=== PATIENT | male | born 1955 | race Caucasian/White ===

== ENCOUNTER 2017-12-16 07:08 | Day surgery (SDC) | payer OTHER ==
[2017-12-12 10:05] LABS: Absolute Lymphocytes (CBC) 2.3 K/uL (0.7-4.9); Absolute Monocytes 1.1 K/uL (0.1-1.3); Basophils % 1.1 % (0-1.3); Eosinophils % 1.2 % (0-4.4); Hematocrit 51.4 % (39.6-49.0); Lymphocytes % 26.3 % (15.3-44.8); MCH 33.1 pg (27.0-35.0); MCV 97.8 fL (80-100); MPV 9.3 fL (7.6-11.3); Monocytes % 12.7 % (3.3-12.3); RBC Red Blood Cell Count 5.26 M/uL (4.33-5.43)
--- NOTE | 2017-12-12 10:19 | RAD REPORT ---
EXAM DESCRIPTION: Silke Molina (2 Views)12/12/2017 9:15 am CLINICAL HISTORY: Hypertension/shortness of breath/preop for heart catheterization COMPARISON: None FINDINGS: The lungs appear clear of acute infiltrate. The heart is mildly enlarged IMPRESSION: No acute abnormalities displayed
[2017-12-12 10:23] LABS: Potassium 4.3 mmol/L (3.5-5.1); Protime INR 1.04
[2017-12-16] MEDS ORDERED: NA CHLORIDE 0.9% 500 ML ONE ×2 (07:46→12:33)
[2017-12-16] MEDS ORDERED: HEPA 1000U/500MLS 1,000 UNIT/500 ML BAG IV ONE (08:28)
[2017-12-16] MEDS ORDERED: LIDOCAINE 1% MPF 2 ML AMPULE ONE (08:28)
[2017-12-16] MEDS ORDERED: LIDOCAINE 1% MPF 5 ML VIAL ONE (11:37)
[2017-12-16] MEDS ORDERED: MIDAZOLAM HCL 2 MG/2 ML INJ ONE (11:54)
[2017-12-16] MEDS ORDERED: NA CHLORIDE 0.9% 50 ML ONE (11:54)
[2017-12-16] MEDS ORDERED: FENTANYL CITR 100 MCG/2 ML ONE (11:54)
[2017-12-16] MEDS ORDERED: ATROPINE SULF 1 MG/10 ML SYR IV ONE (11:54)
[2017-12-16] MEDS ORDERED: ASPIRIN 325 MG TAB ONE (12:41)
[2017-12-16] MEDS ORDERED: CLOPIDOGREL 75 MG TABLET ONE (12:42)
[2017-12-16] MEDS ORDERED: DIAZEPAM 5 MG TABLET PO PRN (15:25)
[2017-12-16] MEDS ORDERED: MORPHINE 4 MG/ML SYR IV PRN (15:25)
[2017-12-16] MEDS: AZELASTINE NASAL SPRAY 30 ML NAS SCH (21:00)
[2017-12-16] MEDS ORDERED: SACUBITRIL/VALSARTAN 24/26 MG TAB PO SCH (21:00)
[2017-12-16] MEDS: ATORVASTATIN 40 MG TAB PO SCH (21:04)
[2017-12-17 05:21] LABS: Absolute Lymphocytes (CBC) 2.5 K/uL (0.7-4.9); Absolute Monocytes 0.9 K/uL (0.1-1.3); Absolute Neutrophil 6.3 K/uL (1.8-8.0); Basophils % 0.9 % (0-1.3); Eosinophils % 1.1 % (0-4.4); Hematocrit 44.4 % (39.6-49.0); Lymphocytes % 25.1 % (15.3-44.8); MCH 32.9 pg (27.0-35.0); MCV 97.1 fL (80-100); MPV 9.2 fL (7.6-11.3); RBC Red Blood Cell Count 4.58 M/uL (4.33-5.43)
[2017-12-17 05:49] LABS: Potassium 4.2 mmol/L (3.5-5.1)
[2017-12-17] MEDS ORDERED: KETOROLAC 30 MG/ML INJ IV ONE (06:24)
[2017-12-17] MEDS ORDERED: NA CHLORIDE 0.9% 250 ML IV ONE (06:24)
[2017-12-17] MEDS: ASPIRIN 81 MG CHEWABLE TABLET PO SCH (08:41)
[2017-12-17] MEDS: SERTRALINE HCL 50 MG TAB PO SCH (08:41)
[2017-12-17] MEDS: FUROSEMIDE 20 MG TABLET PO SCH (08:41)
[2017-12-17] MEDS: CLOPIDOGREL 75 MG TABLET PO SCH (08:41)
[2017-12-17] MEDS: AZELASTINE NASAL SPRAY 30 ML NAS SCH ×2 (09:00→20:07)
--- NOTE | 2017-12-17 09:24 | RAD REPORT ---
EXAM DESCRIPTION: CT - Chest For Pe Angio - 12/17/2017 8:58 am CLINICAL HISTORY: Shortness of breath, recent cardiac catheterization COMPARISON: None. TECHNIQUE: Dynamically enhanced 3 mm thick images of the chest were obtained during administration o f approximately 150mL Isovue 370 IV contrast. Coronal and oblique reconstruction MIP images were gene rated and reviewed. Exam utilizes a protocol to evaluate the pulmonary arterial tree. All CT scans are performed using dose optimization technique as appropriate and may include automated exposure control or mA/KV adjustment according to patient size. FINDINGS: No pulmonary emboli are identified. The aorta as imaged shows no acute or suspicious finding. No pericardial thickening or effusion. No mass or focal infiltrate in the lung parenchyma. Interstitial markings are accentuated by slight m otion degradation. This could potentially mask minimal interstitial edema. Minimal atelectasis in the right posterior gutter. No pleural effusion or pleural thickening. No mediastinal or hilar suspicious masses. No chest wall masses or abnormal axillary lymphadenopathy. IMPRESSION: No pulmonary emboli identified. Motion accentuates the interstitial markings. This could potentially mask a mild interstitial edema o r infiltrate. There is no consolidation, mass or abnormal pleural fluid.
--- NOTE | 2017-12-17 09:36 | EKG ---
Test Date: 2017-12-17 Test Time: 07:35:28 [employer] Clerk: RD MEASUREMENT RESULTS: Intervals: Rate: 76 WA: 148 QRSD: 98 QT: 412 QTc: 463 [place]: P: 7 WA: 148 QRS: -32 T: 15 INTERPRETIVE STATEMENTS: Normal sinus rhythm Left axis deviation Minimal voltage criteria for LVH, may be normal variant Prolonged QT Abnormal ECG Compared to ECG 12/17/2017 06:00:19 T-wave abnormality no longer present Electronically Signed On 12-17-17 09:36:08 CDT by Demetrius Crow
--- NOTE | 2017-12-17 09:38 | EKG ---
Test Date: 2017-12-17 Test Time: 06:00:19 [employer] Operator: RT T MEASUREMENT RESULTS: Intervals: Rate: 79 NM: 150 QRSD: 102 QT: 408 QTc: 467 [place]: P: -9 NM: 150 QRS: -37 T: 16 INTERPRETIVE STATEMENTS: Normal sinus rhythm Left axis deviation Minimal voltage criteria for LVH, may be normal variant Nonspecific T wave abnormality Prolonged QT Abnormal ECG No previous ECG available for comparison Electronically Signed On 12-17-17 09:37:52 CDT by Demetrius Crow
--- NOTE | 2017-12-17 12:19 | PN ---
Subjective: Mr. Thomas is a 62-year-old man. Mr. Thomas had 2 stents put in the coronary arteries yes terday. The diagonal branch of the LAD and the obtuse marginal branch of the circumflex. Both proce dures had excellent angiographic outcome. This morning, he is having chest pain with rather pleuriti c. The dose of ketorolac did not help. EKGs are unchanged. We are going to get a CAT scan, see if there is evidence of any pulmonary embolus, aortic dissection or other causes of possible chest pain. He got a bolus of fluid. His blood pressure is fairly normal. He is clearly not ready for dischar . KT/BRITTANY Voice ID: [id number] Report ID: [id number]
--- NOTE | 2017-12-17 17:49 | OP ---
Surgeon: Jeramy Orosco MD Description Of Procedure: Mr. Thomas was brought into the [facility] as an outpatient. He is 62 years old, has new onset cardiomyopathy and positive Cardiolite. A 6-Lebanese sheath was introduced in the r ight common femoral artery. He was prepped and draped in the routine sterile fashion, given 2 mg of Versed for IV sedation. Six-Lebanese catheters were used to do the diagnostic angiogram. He was found to have an 80% circumflex mid level about 80% proximal diagonal that was a long vessel and large ves jignesh for diagonal. LAD was normal. RCA was normal. Left ventriculogram was done showing ejection fr action of 15% to 20%. I decided to do intervention in the diagonal and circumflex. XB LAD 3.5 was u sed. A [place] wire was used, extra-support exchange with a 2.5 x 12 stent was used to stent the diag onal and then a 2.5 x 16 was used to stent the circumflex both Synergy. There was 0% residual. The patient tolerated the procedure well. There were no complications. Blood Loss: 5 cc. Total Conscious Sedation: 45 minutes. Operators: Jeramy Orosco M.D. and Alissa Zimmerman. The patient received Plavix 600 mg and 325 mg of aspirin and received Angiomax during the procedure. He was stable and I will see him in the office in 2 weeks. He is on Pravachol, Entresto, aspirin an d Plavix. CARRI/ALEXL Voice ID: [id number] Report ID: [id number]
[2017-12-17] MEDS: ATORVASTATIN 40 MG TAB PO SCH (20:07)
[2017-12-18] MEDS: FUROSEMIDE 20 MG TABLET PO SCH (08:20)
[2017-12-18] MEDS: CLOPIDOGREL 75 MG TABLET PO SCH (08:20)
[2017-12-18] MEDS: ASPIRIN 81 MG CHEWABLE TABLET PO SCH (08:20)
[2017-12-18] MEDS: SERTRALINE HCL 50 MG TAB PO SCH (08:20)
[2017-12-18] MEDS: AZELASTINE NASAL SPRAY 30 ML NAS SCH (08:21)
--- NOTE | 2017-12-20 00:29 | PN ---
History: Mr. Thomas basically had come in to see me as an outpatient, was admitted on 12/16/2017 for outpatient catheterization because of new-onset congestive heart failure and a positive Cardiolite, u diogenesrwent a heart catheterization with stent of the diagonal and the circumflex. Yesterday, we were sena valente to send him home, but he was hypotensive secondary to Entresto. He was hydrated gently. Entres to was held today. His blood pressure is normal. We will plan to send him home on Entresto every ot her day, aspirin, Effient, statin, as well as some Lasix, and he will follow up with me in 2 weeks. His discharge diet instruction was a low-fat, low-cholesterol, low-salt diet. He will resume normal activities as tolerated. CARRI/BRITTANY Voice ID: [id number] Report ID: [id number]
== END 2017-12-18 11:34 | disposition home or self-care (01) ==
LOC: CCL 07:08 → 4TH 14:06 → UNDOADMOB 14:06 → 4TH 14:29 → CCL 12-18 11:34
PROC: 4A023N7 Measurement of Cardiac Sampling and Pressure, Left Heart, Percutaneous Approach (ICD-10-PCS; principal; 2017-12-16)
PROC: B201YZZ Plain Radiography of Multiple Coronary Arteries using Other Contrast (ICD-10-PCS; 2017-12-16)
PROC: B205YZZ Plain Radiography of Left Heart using Other Contrast (ICD-10-PCS; 2017-12-16)
PROC: 027035Z Dilation of Coronary Artery, One Artery with Two Drug-eluting Intraluminal Devices, Percutaneous Approach (ICD-10-PCS; 2017-12-16)
DX: I25.10 Atherosclerotic heart disease of native coronary artery without angina pectoris (principal); I11.0 Hypertensive heart disease with heart failure; I50.9 Heart failure, unspecified; I95.2 Hypotension due to drugs; T50.995S Adverse effect of other drugs, medicaments and biological substances, sequela; R07.89 Other chest pain; E78.6 Lipoprotein deficiency; Z88.0 Allergy status to penicillin; Z82.49 Family history of ischemic heart disease and other diseases of the circulatory system
CPT/HCPCS: 36415; 71046; 71275; 80048; 80061; 85025; 85347; 85610; 85730; 92928; 93005; 93458; C1725; C1760; C1893; J0583; J2001; J2250; J3010; Q9967

== ENCOUNTER 2019-12-01 04:42 | Emergency (ER) | payer OTHER ==
[2019-12-01] MEDS ORDERED: ACETAMINOPHEN 500 MG TAB ONE (05:17)
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
[2019-12-01 06:37] VITALS: TEMP 98.3; O2SAT 100
[2019-12-01 06:39] VITALS: BP 110/79
--- NOTE | 2019-12-01 08:41 | RAD REPORT ---
EXAM DESCRIPTION: RAD - Elbow Left 3 View - 12/01/2019 5:31 am CLINICAL HISTORY: Injury Pain and swelling COMPARISON: No comparisons FINDINGS: Prominent soft tissue swelling is seen along the dorsum of the elbow. A large olecranon sp ur is present. No fracture seen.
== END 2019-12-01 06:31 | disposition home or self-care (01) ==
LOC: ER 04:42
DX: S50.02XA Contusion of left elbow, initial encounter (principal); W22.8XXA Striking against or struck by other objects, initial encounter; Y93.89 Activity, other specified; Y92.89 Other specified places as the place of occurrence of the external cause; Y99.8 Other external cause status; I10 Essential (primary) hypertension; Z88.0 Allergy status to penicillin
CPT/HCPCS: 99284

== ENCOUNTER 2019-12-04 10:33 | Emergency (ER) | payer OTHER ==
[2019-12-04] MEDS ORDERED: DOXYCYCLINE 100 MG CAP PO ONE (12:13)
[2019-12-04] MEDS ORDERED: TETANUS & DIPHTHERIA TOX,ADULT 0.5 ML VIAL ONE (12:13)
[2019-12-04] MEDS ORDERED: HYDROCODONE/APAP 5/325 MG TAB ONE (12:24)
--- NOTE | 2019-12-04 13:15 | RAD REPORT ---
EXAM DESCRIPTION: CT - Elbow Left Wo Con - 12/04/2019 1:00 pm CLINICAL HISTORY: pain Pain and swelling COMPARISON: Elbow Left 3 View dated 12/01/2019 FINDINGS: There is moderate skin thickening with subcutaneous edema and fluid along the dorsum of th e elbow. A prominent olecranon spur seen. No fracture, dislocation or evidence of osteomyelitis. No r adiopaque foreign body. 3 x 1 cm crescentic fluid collection superficial to the olecranon region may be related to bursitis/b ursal fluid or subcutaneous abscess. IMPRESSION: Moderate inflammatory/infectious changes are present along the dorsum of the elbow. No u nderlying fracture or foreign body. No evidence of osteomyelitis. Subcutaneous (3 x 1 cm) crescentic fluid collection superficial to the olecranon process may be relat ed to bursal fluid collection or subcutaneous abscess. All CT scans are performed using dose optimization technique as appropriate and may include automated exposure control or mA/KV adjustment according to patient size.
[2019-12-04] MEDS ORDERED: HYDROCODONE/APAP 7.5/325 MG TAB ONE (14:28)
--- NOTE | 2019-12-04 14:34 | EDPHYS ---
Physician Documentation [facility] Name: Javier Thomas Age: 64 yrs Sex: Male : 1955 Arrival Date: 12/04/2019 Time: 10:40 Bed 7 Private MD: ED Physician Kane Zimmerman HPI: 12/03 11:44 This 64 yrs old Male presents to ER via Ambulatory with complaints of Arm pm1 Problem. 11:44 The patient or guardian complains of pain, that is acute, swelling. The complaints pm1 affect the left elbow. Context: [place], resulted from hitting elbow on a large rock while tubing down the river. Onset: The symptoms/episode began/occurred 6 day(s) ago. Treatment prior to arrival includes: patient seen here 3 days ago and had negative elbow x-ray and was discharge with pain medications. Patient reports that he has had some discharge from an abrasion on his elbow. Swelling has decreased and FROM intact. Associated signs and symptoms: Pertinent negatives: decreased range of motion, deformity, fever. The patient has not experienced similar symptoms in the past. Historical: - Allergies: 11:25 PENICILLINS; sv - PMHx: 11:25 Arthritis; cardiomegaly; CHF; Hyperlipidemia; Hypertension; sv - PSHx: 11:25 Heart stents; defibrillator; sv - Immunization history:: Adult Immunizations. - Social history:: Smoking status: . ROS: 11:44 Constitutional: Negative for fever, chills, and weight loss, Cardiovascular: Negative pm1 for chest pain, palpitations, and edema, Respiratory: Negative for shortness of breath, cough, wheezing, and pleuritic chest pain, Abdomen/GI: Negative for abdominal pain, nausea, vomiting, diarrhea, and constipation. 11:44 Neuro: Negative for headache, weakness, numbness, tingling, and seizure. 11:44 MS/extremity: Positive for pain, of the left elbow, Negative for decreased range of motion, deformity. 11:44 Skin: Positive for abrasion(s), of the left elbow, with discharge, Negative for cellulitis. Exam: 11:44 Constitutional: This is a well developed, well nourished patient who is awake, alert, pm1 and in no acute distress. Head/Face: Normocephalic, atraumatic. Chest/axilla: Normal chest wall appearance and motion. Nontender with no deformity. No lesions are appreciated. 11:44 Cardiovascular: Exam negative for acute changes, Rate: normal, Rhythm: regular, Pulses: no pulse deficits are appreciated. 11:44 Respiratory: Exam negative for acute changes, respiratory distress, shortness of breath. 11:44 Skin: Appearance: normal except for affected area, abscess, not appreciated, no drainage, fluctuance, induration, pointing, or surrounding cellulitis, cellulitis, is not appreciated, injury, abrasion(s), small abrasion noted, of the left elbow. 11:44 Neuro: Exam negative for acute changes, Orientation: is normal, Mentation: is normal, Motor: is normal, moves all fours, strength is normal, strength is 5/5 in all extremities. Vital Signs: 11:22 BP 110 / 73; Pulse 61; Resp 16; Temp 97.3; Pulse Ox 97% ; Weight 95.25 kg; Height 5 ft. sv 11 in. (180.34 cm); 12:29 BP 103 / 84; Pulse 62; Resp 18; Pulse Ox 98% on R/A; ph 13:41 BP 110 / 80; Pulse 61; Resp 16; Pulse Ox 97% ; sv 14:13 BP 121 / 80; Pulse 59; Resp 16; Pulse Ox 98% ; sv 11:22 Body Mass Index 29.29 (95.25 kg, 180.34 cm) sv MDM: 11:25 Patient medically screened. pm1 11:42 Data reviewed: vital signs. Data interpreted: Pulse oximetry: on room air is 97 %. pm1 Interpretation: normal. 13:21 Counseling: I had a detailed discussion with the patient and/or guardian regarding: the pm1 historical points, exam findings, and any diagnostic results supporting the discharge/admit diagnosis, radiology results, the need for outpatient follow up, for definitive care, a orthopedic surgeon, to return to the emergency department if symptoms worsen or persist or if there are any questions or concerns that arise at home. 14:00 ED course: I examined Mr. Thomas. CT shows possible fluid collection superficial to ma2 olecranon, this is most likely related to bursitis rather than abscess, ct does not shows clear abscess.. clinically no fluctuance, he has swelling and rendness and warmth of the bursitis yet it is soft tissue swelling . 14:38 ED course: [facility] HE[facility] SPECIALIST Aware reviewed. Patient reports tylenol #3 not effective for pain from pm1 12/01/2019 visit. Will d/c home with tramadol. 12/03 12:38 Order name: Elbow Left Wo Con; Complete Time: 13:20 EDMS Administered Medications: 12:10 Drug: Tetanus-Diphtheria Toxoid Adult 0.5 ml {Naval Inspector: [employer]. Exp: ph 07/16/2021. Lot #: [id number]. } Route: IM; Site: right deltoid; 13:00 Follow up: Response: No adverse reaction sv 12:10 Drug: Doxycycline 100 mg Route: PO; ph 13:00 Follow up: Response: No adverse reaction sv 12:19 Drug: [place] 5 mg-325 mg 1 tabs Route: PO; ph 17:42 Follow up: Response: No adverse reaction; No change in condition; RASS: Alert and Calm sv (0) 14:22 Drug: [place] (7.5 mg-325 mg) 2 tabs Route: PO; sv 15:00 Follow up: Response: No adverse reaction; Marked relief of symptoms; RASS: Alert and sv Calm (0) 14:22 Drug: Clindamycin 300 mg Route: PO; sv 15:00 Follow up: Response: No adverse reaction sv Disposition: 18:34 Co-signature as Attending Physician, Kane Zimmerman MD. ma2 Disposition: 12/04/19 14:33 Discharged to Home. Impression: Olecranon bursitis, left elbow. - Condition is Stable. - Discharge Instructions: Elbow Bursitis. - Prescriptions for Clindamycin HCl 300 mg Oral Capsule - take 1 capsule by ORAL route every 6 hours for 10 days; 40 capsule. Tramadol 50 mg Oral Tablet - take 1 tablet by ORAL route every 8 hours as needed; 12 tablet. - Medication Reconciliation Form, Thank You Letter, Antibiotic Education, Prescription Opioid Use form. - Follow up: Emergency Department; When: As needed; Reason: Worsening of condition. Follow up: Private Physician; When: 2 - 3 days; Reason: Recheck today's complaints, Continuance of care, Re-evaluation by your physician. - Problem is new. - Symptoms have improved. Signatures: Dispatcher [facility] Mariya Hughes RN RN sv Selina De Anad RN RN ph Ashish Corona, NEWSPAPER PRESS OPERATOR APPRENTICE NEWSPAPER PRESS OPERATOR APPRENTICE pm1 Kane Zimmerman MD MD ma2 Corrections: (The following items were deleted from the chart) 13:09 11:51 CT LEFT ELBOW WO CONTRAST ordered. EDMS EDMS 15:20 14:33 12/04/2019 14:33 Discharged to Home. Impression: Olecranon bursitis, left elbow. ph Condition is Stable. Prescriptions for Clindamycin HCl 300 mg Oral Capsule - take 1 capsule by ORAL route every 6 hours for 10 days; 40 capsule, Diclofenac Sodium 75 mg Oral Tablet Sustained Release - take 1 tablet by ORAL route 2 times per day; 30 tablet. and Forms are Medication Reconciliation Form, Thank You Letter, Antibiotic Education, Prescription Opioid Use. Follow up: Emergency Department; When: As needed; Reason: Worsening of condition. Follow up: Private Physician; When: 2 - 3 days; Reason: Recheck today's complaints, Continuance of care, Re-evaluation by your physician. Problem is new. Symptoms have improved. pm1
--- NOTE | 2019-12-04 14:34 | ER ---
Nurse's Notes [facility] Name: Javier Thomas Age: 64 yrs Sex: Male : 1955 Arrival Date: 12/04/2019 Time: 10:40 Bed 7 Private MD: Diagnosis: Olecranon bursitis, left elbow Presentation: 12/03 11:22 Chief complaint: Patient states: "I think I have an infection in my left elbow." Pt was sv seen here and prescribed pain meds, c/o pain. Original incident occurred on Friday. Coronavirus screen: Proceed with normal triage. Patient denies a cough. Patient denies shortness of breath or difficulty breathing. Patient denies measured and/or subjective temperature greater than 100.4F prior to today's visit. Patient denies travel on a cruise ship or to a country the [facility] currently lists as an affected area. Patient denies contact with known and/or suspected case of COVID-19. Ebola Screen: No symptoms or risks identified at this time. Initial Sepsis Screen: Does the patient meet any 2 criteria? No. Patient's initial sepsis screen is negative. Does the patient have a suspected source of infection? Yes: Skin breakdown/wound. Risk Assessment: Do you want to hurt yourself or someone else? Patient reports no desire to harm self or others. Onset of symptoms was November 28, 2019. 11:22 Method Of Arrival: Ambulatory sv 11:22 Acuity: JAC 3 sv Triage Assessment: 11:22 General: Appears in no apparent distress. uncomfortable, well developed, Behavior is sv calm, cooperative, appropriate for age. Pain: Complains of pain in left elbow. Neuro: Level of Consciousness is awake, alert, obeys commands, Oriented to person, place, time, situation, Gait is steady. Respiratory: Airway is patent Respiratory effort is even, unlabored, Respiratory pattern is regular, symmetrical. Derm: Skin is pink, warm \\T\\ dry. Injury Description: Abrasion sustained to left elbow. Historical: - Allergies: 11:25 PENICILLINS; sv - PMHx: 11: Arthritis; cardiomegaly; CHF; Hyperlipidemia; Hypertension; sv - PSHx: 11:25 Heart stents; defibrillator; sv - Immunization history:: Adult Immunizations. - Social history:: Smoking status: . Screenin:28 Abuse screen: Denies threats or abuse. Denies injuries from another. Nutritional ph screening: No deficits noted. Tuberculosis screening: No symptoms or risk factors identified. Fall Risk None identified. Assessment: 12:27 General: Appears in no apparent distress. comfortable, well groomed, Behavior is calm, ph cooperative, appropriate for age, Denies fever. Pain: Complains of pain in left elbow. Neuro: Level of Consciousness is awake, alert, obeys commands, Oriented to person, place, time, situation. Cardiovascular: Capillary refill < 3 seconds in bilateral fingers Patient's skin is warm and dry. Respiratory: Airway is patent Respiratory effort is even, unlabored. Derm: Skin is healthy with good turgor, Skin is pink, warm \\T\\ dry. Musculoskeletal: Swelling present in left elbow small open wound w/ serous drainage noted. Vital Signs: 11:22 BP 110 / 73; Pulse 61; Resp 16; Temp 97.3; Pulse Ox 97% ; Weight 95.25 kg; Height 5 ft. sv 11 in. (180.34 cm); 12:29 BP 103 / 84; Pulse 62; Resp 18; Pulse Ox 98% on R/A; ph 13:41 BP 110 / 80; Pulse 61; Resp 16; Pulse Ox 97% ; sv 14:13 BP 121 / 80; Pulse 59; Resp 16; Pulse Ox 98% ; sv 11:22 Body Mass Index 29.29 (95.25 kg, 180.34 cm) sv ED Course: 10:40 Patient arrived in ED. fj1 11:15 Ashish Corona NP is PHCP. pm1 11:15 Kane Zimmerman MD is Attending Physician. pm1 11:22 Mariya Wang, MATILDE is Primary Nurse. sv 11:24 Triage completed. sv 11:25 Arm band placed on. sv 12:28 Patient has correct armband on for positive identification. Bed in low position. Call ph light in reach. Side rails up X 1. Pulse ox on. NIBP on. Door closed. Noise minimized. Warm blanket given. 13:00 Elbow Left Wo Con In Process Unspecified. EDMS 13:00 CT completed. Patient tolerated procedure well. Patient moved back from CT. bq 15:20 No provider procedures requiring assistance completed. Patient did not have IV access sv during this emergency room visit. Administered Medications: 12:10 Drug: Tetanus-Diphtheria Toxoid Adult 0.5 ml {Nodulizer: [employer] [place]. Exp: ph 07/16/2021. Lot #: [id number]. } Route: IM; Site: right deltoid; 13:00 Follow up: Response: No adverse reaction sv 12:10 Drug: Doxycycline 100 mg Route: PO; ph 13:00 Follow up: Response: No adverse reaction sv 12:19 Drug: [place] 5 mg-325 mg 1 tabs Route: PO; ph 17:42 Follow up: Response: No adverse reaction; No change in condition; RASS: Alert and Calm sv (0) 14:22 Drug: [place] (7.5 mg-325 mg) 2 tabs Route: PO; sv 15:00 Follow up: Response: No adverse reaction; Marked relief of symptoms; RASS: Alert and sv Calm (0) 14:22 Drug: Clindamycin 300 mg Route: PO; sv 15:00 Follow up: Response: No adverse reaction sv Outcome: 14:33 Discharge ordered by . pm1 15:20 Patient left the ED. ph 15:20 Discharged to home ambulatory. sv 15:20 Condition: stable 15:20 Discharge instructions given to patient, Instructed on discharge instructions, follow up and referral plans. medication usage, Demonstrated understanding of instructions, follow-up care, medications, Prescriptions given X 2. Signatures: Dispatcher [employer] Mariya Hughes RN MATILDE Gina Wallace Patricia, RN RN Ashish Corona, MAYA SENIOR LOAN OFFICER pm1 Chilo Garcia1 Corrections: (The following items were deleted from the chart) 17:42 13:00 Response: No adverse reaction; No change in condition sv sv
[2019-12-04 15:25] VITALS: TEMP 97.3
[2019-12-04 15:29] VITALS: BP 121/80; O2SAT 98
== END 2019-12-04 15:20 | disposition home or self-care (01) ==
LOC: ER 10:33
DX: M70.22 Olecranon bursitis, left elbow (principal); W22.8XXA Striking against or struck by other objects, initial encounter; Y92.89 Other specified places as the place of occurrence of the external cause; Y93.16 Activity, rowing, canoeing, kayaking, rafting and tubing; I10 Essential (primary) hypertension; Z23 Encounter for immunization; Z88.0 Allergy status to penicillin; Z95.810 Presence of automatic (implantable) cardiac defibrillator; Z95.818 Presence of other cardiac implants and grafts
CPT/HCPCS: 73200; 90471; 90714; 99284

== ENCOUNTER 2020-01-19 19:40 | Inpatient (IN) | payer OTHER ==
--- NOTE | 2020-01-19 20:35 | RAD REPORT ---
EXAM DESCRIPTION: RAD - Chest Single View - 01/19/2020 8:27 pm CLINICAL HISTORY: CHEST PAIN Chest pain. COMPARISON: Chest Pa And Lat (2 Views) dated 12/12/2017; Abdomen 1 View (KUB) dated 09/11/2015 FINDINGS: Portable technique limits examination quality. The lungs are grossly clear. The heart is upper limit of normal in size. No displaced fractures.Multi lead pacer/defibrillator device is present. IMPRESSION: No acute intrathoracic process suspected.
[2020-01-19 20:46] LABS: Protime INR 0.97
[2020-01-19 20:47] LABS: Absolute Lymphocytes (CBC) 2.3 K/uL (0.7-4.9); Basophils % 0.9 % (0-1.3); Hematocrit 42.7 % (39.6-49.0); Lymphocytes % 32.1 % (15.3-44.8); MPV 8.4 fL (7.6-11.3); RBC Red Blood Cell Count 4.44 M/uL (4.33-5.43)
[2020-01-19 20:55] LABS: ALT/SGPT 37 U/L (12-78); AST/SGOT 20 U/L (15-37); Albumin 3.6 g/dL (3.4-5.0); Alkaline Phosphatase 69 U/L (45-117); BUN Blood Urea Nitrogen 24 mg/dL (7-18); Bicarbonate 28 mmol/L (21-32); Bilirubin Direct 0.1 mg/dL (0-0.2); Bilirubin Total 0.4 mg/dL (0.2-1.0); Glucose Level 137 mg/dL (74-106); Magnesium 2.3 mg/dL (1.8-2.4); NT PRO-BNP 18 pg/mL (<125); Protein, Total 7.4 g/dL (6.4-8.2); Sodium Level 141 mmol/L (136-145); Troponin (Emerg Dept Use Only) < 0.02 ng/mL (0.0-0.045)
--- NOTE | 2020-01-20 00:16 | EDPHYS ---
Physician Documentation [facility] Name: Javier Thomas Age: 64 yrs Sex: Male : 1955 Arrival Date: 01/19/2020 Time: 19:41 Bed 25 Private MD: ED Physician Toni Becerra HPI: 01/18 20:38 This 64 yrs old Male presents to ER via Ambulatory with complaints of Chest mh7 Pain, Shortness Of Breath. 20:38 The patient or guardian reports chest pain that is located primarily in the anterior mh7 chest wall, left. Onset: 2 week(s) ago, and became worse today. The pain radiates to the left arm. Associated signs and symptoms: Pertinent positives: shortness of breath. 20:39 Associated signs and symptoms: Pertinent negatives: abdominal pain, cough, diaphoresis, mh7 dizziness, headache, lower extremity pain, lower extremity swelling, lightheadedness, nausea, near syncope, palpitations, recent travel, syncope, vomiting. The chest pain is described as a pressure. Duration: The patient or guardian reports multiple episodes, that are intermittent, that wax and wane, with no pattern. Modifying factors: The symptoms are alleviated by remaining still, rest, the symptoms are aggravated by exertion. Severity of pain: At its worst the pain was moderate today, in the emergency department the pain has improved markedly. Historical: - Allergies: 19:47 PENICILLINS; ll1 - PMHx: 19:47 Arthritis; cardiomegaly; CHF; Hyperlipidemia; Hypertension; ll1 - PSHx: 19:47 Heart stents; defibrillator; ll1 - Immunization history:: Flu vaccine is up to date. - Social history:: Smoking status: Patient denies any tobacco usage or history of. Patient/guardian denies using alcohol, street drugs. ROS: 20:39 Constitutional: Negative for fever, chills, and weight loss, Eyes: Negative for injury, mh7 pain, redness, and discharge, ENT: Negative for injury, pain, and discharge, Neck: Negative for injury, pain, and swelling, Abdomen/GI: Negative for abdominal pain, nausea, vomiting, diarrhea, and constipation, Back: Negative for injury and pain, : Negative for injury, bleeding, discharge, and swelling, MS/Extremity: Negative for injury and deformity, Skin: Negative for injury, rash, and discoloration, Neuro: Negative for headache, weakness, numbness, tingling, and seizure, Psych: Negative for depression, anxiety, suicide ideation, homicidal ideation, and hallucinations, Allergy/Immunology: Negative for hives, rash, and allergies, Endocrine: Negative for neck swelling, polydipsia, polyuria, polyphagia, and marked weight changes, Hematologic/Lymphatic: Negative for swollen nodes, abnormal bleeding, and unusual bruising. Exam: 20:39 Constitutional: This is a well developed, well nourished patient who is awake, alert, mh7 and in no acute distress. Head/Face: Normocephalic, atraumatic. Neck: Trachea midline, no thyromegaly or masses palpated, and no cervical lymphadenopathy. Supple, full range of motion without nuchal rigidity, or vertebral point tenderness. No Meningismus. Chest/axilla: Normal chest wall appearance and motion. Nontender with no deformity. No lesions are appreciated. Cardiovascular: Regular rate and rhythm with a normal S1 and S2. No gallops, murmurs, or rubs. Normal PMI, no JVD. No pulse deficits. Respiratory: Lungs have equal breath sounds bilaterally, clear to auscultation and percussion. No rales, rhonchi or wheezes noted. No increased work of breathing, no retractions or nasal flaring. Abdomen/GI: Soft, non-tender, with normal bowel sounds. No distension or tympany. No guarding or rebound. No evidence of tenderness throughout. Back: No spinal tenderness. No costovertebral tenderness. Full range of motion. Skin: Warm, dry with normal turgor. Normal color with no rashes, no lesions, and no evidence of cellulitis. MS/ Extremity: Pulses equal, no cyanosis. Neurovascular intact. Full, normal range of motion. Neuro: Awake and alert, GCS 15, oriented to person, place, time, and situation. Cranial nerves II-XII grossly intact. Motor strength 5/5 in all extremities. Sensory grossly intact. Cerebellar exam normal. Normal gait. Psych: Awake, alert, with orientation to person, place and time. Behavior, mood, and affect are within normal limits. 20:39 ECG was reviewed by the Attending Physician. Vital Signs: 19:45 BP 130 / 88; Pulse 73; Resp 18; Temp 97.8; Pulse Ox 97% ; Weight 93.89 kg; Height 5 ft. ll1 11 in. (180.34 cm); Pain 9/10; 21:00 BP 128 / 76; Pulse 76; Resp 16; Pulse Ox 94% on R/A; Pain 7/10; ls4 22:00 BP 119 / 84; Pulse 64; Resp 16; Pulse Ox 96% on R/A; Pain 5/10; ls4 23:00 BP 117 / 78; Pulse 64; Resp 16; Pulse Ox 96% on R/A; ls4 01/19 00:22 BP 140 / 79; Pulse 64; Resp 16; Pulse Ox 97% ; ls4 01:30 BP 131 / 81; Pulse 61; Resp 18; Pulse Ox 95% on R/A; lp1 01/18 19:45 Body Mass Index 28.87 (93.89 kg, 180.34 cm) ll1 MDM: 01/18 20:38 Patient medically screened. [facility] 01/19 00:13 Differential diagnosis: abnormal EKG, acute myocardial infarction, acute pericarditis, [facility] coronary artery disease chest wall pain, costochondritis, pleurisy, pneumonia, pneumothorax, stable angina, unstable angina. HEART Score: History: Highly Suspicious (2), ECG: Non specific repolarization disturbance / LBTB / PM (1), Age: > 45 and < 65 years (1), Risk Factors: > or = 3 Risk factors for atherosclerotic disease (2), [Hypercholesterolemia] [Hypertension] [DM] Troponin: < or = 1 x Normal Limit (0), Total Score = 6. The patient was given aspirin in the Emergency Department. Data reviewed: vital signs, nurses notes, old medical records, lab test result(s), cardiac enzymes, CBC, electrolytes, urinalysis, EKG, radiologic studies, plain films. Data interpreted: Pulse oximetry: on room air is 96 %. Interpretation: normal. Counseling: I had a detailed discussion with the patient and/or guardian regarding: the historical points, exam findings, and any diagnostic results supporting the discharge/admit diagnosis, lab results, radiology results, the need for further work-up and treatment in the hospital. 06:24 Response to treatment: the patient's symptoms have markedly improved after treatment. [facility] 01/18 20:08 Order name: Basic Metabolic Panel [facility] 01/18 20:08 Order name: CBC with Diff [facility] 01/18 20:08 Order name: LFT's; Complete Time: 22:59 4 01/18 20:08 Order name: Magnesium; Complete Time: 22:59 4 01/18 20:08 Order name: NT PRO-BNP; Complete Time: 22:59 4 01/18 20:08 Order name: PT-INR; Complete Time: 22:59 4 01/18 20:08 Order name: Troponin (emerg Dept Use Only); Complete Time: 22:59 4 01/18 20:08 Order name: XRAY Chest (1 view); Complete Time: 22:59 4 01/18 20:08 Order name: EKG; Complete Time: 20:09 [facility] 01/18 20:08 Order name: Cardiac monitoring; Complete Time: 20:09 4 01/18 20:09 Order name: Basic Metabolic Panel; Complete Time: 22:59 EDMS 01/18 20:09 Order name: CBC with Automated Diff; Complete Time: 22:59 EDMS 01/18 20:08 Order name: EKG - Nurse/Tech; Complete Time: 20:09 [facility] 01/18 20:08 Order name: IV Saline Lock; Complete Time: 20:09 4 01/18 20:08 Order name: Labs collected and sent; Complete Time: 20:09 [facility] 01/18 20:08 Order name: O2 Per Protocol; Complete Time: 20:09 4 01/18 20:08 Order name: O2 Sat Monitoring; Complete Time: 20:09 ls4 EC/19 20:39 Rate is 72 beats/min. Rhythm is regular, Normal Sinus Rhythm. QRS [place] is Normal. [place] mh7 interval is normal. QRS interval is normal. QT interval is normal. No Q waves. T waves are Inverted in lead III. No ST changes noted. Clinical impression: NSR w/ Non-specific ST/T Changes and LVH. Administered Medications: 01/19 00:17 Drug: morphine 2 mg Route: IVP; Site: left antecubital; ls4 01:30 Follow up: Response: Pain is decreased lp1 00:18 Drug: Aspirin 324 mg Route: PO; ls4 02:14 Follow up: Response: No adverse reaction lp1 Disposition: 06:24 Co-signature as Attending Physician, Toni Becerra MD. 7 Disposition: 01/20/20 00:18 Hospitalization ordered by Justin Hyde for Observation. Preliminary diagnosis is Chest pain, unspecified. - Bed requested for Telemetry/MedSurg (observation). - Status is Observation. lp1 - Condition is Stable. - Problem is an acute exacerbation. - Symptoms have improved. Signatures: Dispatcher [employer] EDMS Perla Martínez RN RN lp1 Zohreh Smith RN RN tl1 Magda Carrera RN RN ls4 Kelly Pollack RN RN ll1 Toni Becerra MD MD 7 Corrections: (The following items were deleted from the chart) 00:17 00:15 Hospitalization Ordered by Wallace ROUSSEAU-Jessi for Observation. Preliminary 7 diagnosis is Chest pain, unspecified. Bed requested for Telemetry/MedSurg (observation). Status is Observation. Condition is Stable. Problem is an acute exacerbation. Symptoms have improved. 7 01:45 00:18 Hospitalization Ordered by Justin Hyde for Observation. Preliminary diagnosis tl1 is Chest pain, unspecified. Bed requested for Telemetry/MedSurg (observation). Status is Observation. Condition is Stable. Problem is an acute exacerbation. Symptoms have improved. mh7 02:23 01:45 01/20/2020 00:18 Hospitalization Ordered by Justin Hyde for Observation. lp1 Preliminary diagnosis is Chest pain, unspecified. Bed requested for Telemetry/MedSurg (observation). Status is Observation. Condition is Stable. Problem is an acute exacerbation. Symptoms have improved. tl1
--- NOTE | 2020-01-20 00:16 | ER ---
Nurse's Notes [facility] Name: Javier Thomas Age: 64 yrs Sex: Male : 1955 Arrival Date: 01/19/2020 Time: 19:41 Bed 25 Private MD: Diagnosis: Chest pain, unspecified Presentation: 01/18 19:45 Chief complaint: Patient states: CP and SOB for 2-3 weeks, worse today. Dr. Mak ll1 sent him for eval. Coronavirus screen: Client denies travel out of the [place] in the last 14 days. At this time, the client does not indicate any symptoms associated with coronavirus-19. Ebola Screen: Patient denies travel to an Ebola-affected area in the 21 days before illness onset. Initial Sepsis Screen: Does the patient meet any 2 criteria? No. Patient's initial sepsis screen is negative. Risk Assessment: Do you want to hurt yourself or someone else? Patient reports no desire to harm self or others. Onset of symptoms was January 01, 2020. 19:45 Method Of Arrival: Ambulatory 1 19:45 Acuity: JAC 3 ll1 21:21 Initial Sepsis Screen: Does the patient have a suspected source of infection? No. ls4 Patient's initial sepsis screen is negative. Triage Assessment: 19:53 General: Appears in no apparent distress. comfortable, Behavior is calm, cooperative. ls4 Pain: Complains of pain in right clavicle, left clavicle, anterior aspect of right upper chest, anterior aspect of left upper chest and mid-sternal area Pain does not radiate. Pain currently is 7 out of 10 on a pain scale. Cardiovascular: Reports chest pain, "tightness". Respiratory: Airway is patent Respiratory effort is even, unlabored, Respiratory pattern is regular, Denies cough, labored breathing, pain with respiration, pain with cough, pain with movement, air hunger. GI: No deficits noted. No signs and/or symptoms were reported involving the gastrointestinal system. : No deficits noted. No signs and/or symptoms were reported regarding the genitourinary system. Derm: No deficits noted. No signs and/or symptoms reported regarding the dermatologic system. Musculoskeletal: No deficits noted. No signs and/or symptoms reported regarding the musculoskeletal system. Historical: - Allergies: 19:47 PENICILLINS; ll1 - PMHx: 19:47 Arthritis; cardiomegaly; CHF; Hyperlipidemia; Hypertension; ll1 - PSHx: 19:47 Heart stents; defibrillator; ll1 - Immunization history:: Flu vaccine is up to date. - Social history:: Smoking status: Patient denies any tobacco usage or history of. Patient/guardian denies using alcohol, street drugs. Screenin:53 Abuse screen: Denies threats or abuse. Denies injuries from another. Nutritional ls4 screening: No deficits noted. Tuberculosis screening: No symptoms or risk factors identified. Fall Risk None identified. Assessment: 19:53 Reassessment: Patient appears in no apparent distress at this time. No changes from ls4 previously documented assessment. Patient and/or family updated on plan of care and expected duration. Pain level reassessed. Patient is alert, oriented x 3, equal unlabored respirations, skin warm/dry/pink. Pain: Pain began gradually, over last 3 weeks. 21:21 Reassessment: Patient appears in no apparent distress at this time. No changes from ls4 previously documented assessment. Patient and/or family updated on plan of care and expected duration. Pain level reassessed. Patient is alert, oriented x 3, equal unlabored respirations, skin warm/dry/pink. 23:43 Reassessment: Patient appears in no apparent distress at this time. No changes from ls4 previously documented assessment. Patient and/or family updated on plan of care and expected duration. Pain level reassessed. Patient is alert, oriented x 3, equal unlabored respirations, skin warm/dry/pink. 01/19 01:46 Reassessment: Patient appears in no apparent distress at this time. Patient is alert, lp1 oriented x 3, equal unlabored respirations, skin warm/dry/pink. Patient ambulated to bathroom at this time. Vital Signs: 01/18 19:45 BP 130 / 88; Pulse 73; Resp 18; Temp 97.8; Pulse Ox 97% ; Weight 93.89 kg; Height 5 ft. ll1 11 in. (180.34 cm); Pain 9/10; 21:00 BP 128 / 76; Pulse 76; Resp 16; Pulse Ox 94% on R/A; Pain 7/10; ls4 22:00 BP 119 / 84; Pulse 64; Resp 16; Pulse Ox 96% on R/A; Pain 5/10; ls4 23:00 BP 117 / 78; Pulse 64; Resp 16; Pulse Ox 96% on R/A; ls4 01/19 00:22 BP 140 / 79; Pulse 64; Resp 16; Pulse Ox 97% ; ls4 01:30 BP 131 / 81; Pulse 61; Resp 18; Pulse Ox 95% on R/A; lp1 01/18 19:45 Body Mass Index 28.87 (93.89 kg, 180.34 cm) ll1 ED Course: 01/18 19:41 Patient arrived in ED. cl3 19:47 Triage completed. ll1 19:47 Arm band placed on. ll1 19:53 equipment monitor phototypesetting on. Pulse ox on. NIBP on. ls4 19:53 Patient has correct armband on for positive identification. Placed in gown. Bed in low ls4 position. Call light in reach. Side rails up X2. Verbal reassurance given. 20:08 Magda Carrera RN is Primary Nurse. ls4 20:25 Toni Becerra MD is Attending Physician. 7 20:27 XRAY Chest (1 view) In Process Unspecified. EDMS 20:28 No apparent distress. ls4 20:28 Basic Metabolic Panel Sent. ls4 20:28 CBC with Diff Sent. ls4 20:28 No provider procedures requiring assistance completed. ls4 20:28 Initial lab(s) drawn, by nh, sent to lab. Inserted saline lock: 20 gauge in left ls4 antecubital area, using aseptic technique. Patient maintains SpO2 saturation greater than 95% on room air. 01/19 00:15 Wallace Solis FNP-C is Hospitalizing Provider. 7 00:17 Justin Hyde is Hospitalizing Provider. 7 00:25 Report received from MATILDE Man. lp1 01:48 Patient admitted, IV remains in place. lp1 Administered Medications: 00:17 Drug: morphine 2 mg Route: IVP; Site: left antecubital; ls4 01:30 Follow up: Response: Pain is decreased lp1 00:18 Drug: Aspirin 324 mg Route: PO; ls4 02:14 Follow up: Response: No adverse reaction lp1 Outcome: 00:15 Decision to Hospitalize by Provider. mh7 00:18 Decision to Hospitalize by Provider. 7 01:46 Condition: stable lp1 01:46 Instructed on the need for admit. 02:13 Admitted to Med/surg room 222, with chart, Report called to MATILDE Shah lp1 02:23 Patient left the ED. lp1 Signatures: Dispatcher [employer] EDMS Perla Martínez RN RN lp1 Magda Carrera RN RN ls4 Donald Pollack cl3 Kelly Pollack RN RN ll1 Toni Becerra MD MD mh7 Corrections: (The following items were deleted from the chart) 01/18 23:43 19:53 BP 128 / 76; Pulse 76bpm; Resp 16bpm; Pulse Ox 94% RA; Pain 7/10; ls4 ls4
[2020-01-20] MEDS ORDERED: ASPIRIN 81 MG CHEWABLE TABLET ONE (00:20)
[2020-01-20] MEDS ORDERED: MORPHINE 2 MG/ML SYR ONE (00:20)
--- NOTE | 2020-01-20 00:49 | P.HP ---
Certification for Inpatient Patient admitted to: Observation With expected LOS: <2 Midnights Patient will require the following post-hospital care: None Practitioner: I am a practitioner with admitting privileges, knowledge of patient current condition, hospital course, and medical plan of care. Services: Services provided to patient in accordance with Admission requirements found in Title 42 Section 412.3 of the Code of Federal Regulations Patient History Date of Service: 01/20/20 Primary Care Provider: Elier Reason for admission: Chest pain History of Present Illness: 64-year-old male with history of CAD, CHF, hypertension, hyperlipidemia presents the emergency department for chest pain. Patient reports he has had chest pain on and off for approximately 2 weeks. Chest pain is worse with exertion. Patient reports last heart catheterization was approximately 2 years ago we can stent placement. Patient also reports that he has a pacemaker/defibrillator due to his CHF. No recent echocardiogram available for me to review. Patient was evaluated in the emergency department and found to have normal cardiac enzymes initially in no acute changes on the EKG. Chest x-ray also unremarkable. ED provider wishes to admit patient for further evaluation and management based on risk factors When I saw the patient in the emergency department he was awake, alert, oriented x4. Patient reports very mild chest pain, left-sided, pressure, radiating to left arm. Patient be admitted for further evaluation and management. Allergies Penicillins Allergy (Verified 12/16/17 15:15) Hives/Rash Home Medications: Atorvastatin Calcium [Lipitor*] 1 tab PO BEDTIME 12/16/17 Azelastine [Astelin 137MCG/Metered Golden] 2 sprays NS BID 12/16/17 Furosemide [Lasix] 20 mg PO DAILY 12/16/17 Sacubitril/Valsartan [Entresto 24 mg-26 mg Tablet] 1 each PO BID 12/16/17 Sertraline [Zoloft*] 1 tab PO DAILY 12/16/17 Atorvastatin Calcium [Lipitor] 40 mg PO BEDTIME #30 tab 12/18/17 Clopidogrel Bisulfate [Plavix] 75 mg PO DAILY #30 tablet 12/18/17 - Past Medical/Surgical History Diabetic: No -: Hyperlipidemia -: Coronary artery disease with stent placement -: Hypertension -: CHF -: Pacemaker defibrillator -: Kidney Stones Removal -: Left Leg Surgery 1980 -: Pacemaker defibrillator -: Cardiac Stent placement Psychosocial/ Personal History: Patient lives at home with his family - Family History Father -: Cancer Notes: Lung Cancer Mother -: Heart disease Notes: Valve replacement Sister Notes: Enlarged Heart. Elder Sister- due to Stroke Brother Notes: CABG - Social History Smoking Status: Never smoker Alcohol use: Yes CD- Drugs: No Caffeine use: Yes Place of Residence: Home Review of Systems 10-point ROS is otherwise unremarkable Cardiovascular: Chest Pain Physical Examination - Physical Exam General: Alert, In no apparent distress HEENT: Atraumatic, PERRLA, Mucous membr. moist/pink, EOMI, Sclerae nonicteric Neck: Supple, 2+ carotid pulse no bruit, No LAD, Without JVD or thyroid abnormality Respiratory: Clear to auscultation bilaterally, Normal air movement Cardiovascular: Regular rate/rhythm, Normal S1 S2 Gastrointestinal: Normal bowel sounds, No tenderness Musculoskeletal: No tenderness Integumentary: No rashes Neurological: Normal gait, Normal speech, Normal strength at 5/5 x4 extr, Normal tone, Normal affect Lymphatics: No axilla or inguinal lymphadenopathy - Studies Laboratory Data (last 24 hrs) 01/19/20 18:19: PT 11.4, INR 0.97 01/19/20 18:19: WBC 7.1, Hgb 14.6, Hct 42.7, Plt Count 201 01/19/20 18:19: Sodium 141, Potassium 4.0, BUN 24 H, Creatinine 0.93, Glucose 137 H, Magnesium 2.3, Total Bilirubin 0.4, AST 20, ALT 37, Alkaline Phosphatase 69 Assessment and Plan - Plan Assessment Chest pain Hypertension Hyperlipidemia Coronary artery disease, history of stent placement Plan Chest pain: Continue patient's Plavix, aspirin, other home medications. Cardio logy has been consulted on this case. Will trend troponins. EKG as needed. Patient to remain on telemetry throughout this hospitalization. NPO until evaluation by Cardiology for possible catheterization. Anticipate discharge tomorrow. Chronic CHF-unknown if systolic or diastolic: Will allow cardiology to evaluate patient to determine if he needs echocardiogram. Will continue patient's home medication Lasix. Hypertension: Home medications have been continued. Hyperlipidemia: Home medications have been continued. Coronary artery disease, history of stent placement: Continue aspirin Plavix. Discharge Plan: Home Plan to discharge in: 24 Hours - Advance Directives Does patient have a Living Will: No Does patient have a Durable POA for Healthcare: No - Code Status/Comfort Care Code Status Assessed: Yes (Patient is full code) Critical Care: No Time Spent Managing Pts Care (In Minutes): 55
[2020-01-20] MEDS ORDERED: MORPHINE 2 MG/ML SYR IV PRN (02:34)
[2020-01-20] MEDS ORDERED: ONDANSETRON 4 MG/2 ML VIAL IV PRN (02:34)
[2020-01-20 02:58] VITALS: BMI 29.1
[2020-01-20] MEDS: NA CHLORIDE 0.9% 1,000 ML IV SCH ×3 (04:04→21:23)
[2020-01-20] MEDS: ASPIRIN EC 81 MG TAB PO SCH (06:22)
[2020-01-20] MEDS: CLOPIDOGREL 75 MG TABLET PO SCH (06:22)
[2020-01-20] MEDS: carvediloL 12.5 MG TAB PO SCH ×2 (06:22→18:00)
--- NOTE | 2020-01-20 08:39 | EKG ---
Test Date: 2020-01-19 Test Time: 20:00:49 Special Effects Technician: DANAY MEASUREMENT RESULTS: Intervals: Rate: 72 MD: 156 QRSD: 94 QT: 384 QTc: 420 [place]: P: 2 MD: 156 QRS: -47 T: -16 INTERPRETIVE STATEMENTS: Normal sinus rhythm Left anterior fascicular block Minimal voltage criteria for LVH, may be normal variant Nonspecific ST abnormality Abnormal ECG Compared to ECG 12/17/2017 07:35:28 Left anterior fascicular block now present ST (T wave) deviation now present Left-axis deviation no longer present Prolonged QT interval no longer present Electronically Signed On 01-20-20 08:38:15 CDT by Jeramy Orosco
[2020-01-20] MEDS ORDERED: ENOXAPARIN 40 MG/0.4 ML SQ SCH (09:00)
[2020-01-20] MEDS: SACUBITRIL/VALSARTAN 49/51 MG TAB PO SCH ×2 (10:40→21:23)
[2020-01-20] MEDS: FUROSEMIDE 20 MG TABLET PO SCH (10:40)
[2020-01-20] MEDS ORDERED: NA CHLORIDE 0.9% 500 ML ONE (13:57)
--- NOTE | 2020-01-20 14:14 | P.PN ---
Date of Service: 01/20/20 Patient seen and examined. He is complaining of lingering chest pain, about 2/10 in intensity. 3 set of troponins are negative. Stable blood pressure. Patient seen by cardiology-Dr. Orosco. Cardiology is planning cardiac catheterization today. Patient is on aspirin and Plavix.
[2020-01-20] MEDS ORDERED: HEPA 1000U/500MLS 2,000 UNIT/1,000 ML BAG IV ONE (14:28)
[2020-01-20] MEDS ORDERED: NITROGLYCERIN/D5W 25 MG/250 ML BTL IV ONE (14:29)
[2020-01-20] MEDS ORDERED: ATROPINE SULF 1 MG/10 ML SYR IV ONE (14:29)
[2020-01-20] MEDS ORDERED: HEPARIN 5000 UNIT/ML 1 ML VIAL ONE (14:29)
[2020-01-20] MEDS ORDERED: MIDAZOLAM HCL 2 MG/2 ML INJ ONE (14:29)
[2020-01-20] MEDS ORDERED: NITROGLYCERIN 100 MCG/ML SYR (for cath lab use only) IV ONE (14:29)
[2020-01-20] MEDS ORDERED: NICARDIPINE HCL 25 MG/10 ML IV ONE (14:29)
[2020-01-20] MEDS ORDERED: FENTANYL CITR 100 MCG/2 ML ONE (14:29)
[2020-01-20] MEDS ORDERED: CLOPIDOGREL 75 MG TABLET ONE ×2 (16:04→16:07)
[2020-01-20] MEDS ORDERED: HEPA 1000U/500MLS 1,000 UNIT/500 ML BAG IV ONE (16:11)
[2020-01-20] MEDS ORDERED: ACETAMINOPHEN 325 MG TABLET ONE (18:05)
[2020-01-20 19:14] VITALS: O2SAT 94
[2020-01-20] MEDS ORDERED: ATORVASTATIN 40 MG TAB PO SCH (21:00)
[2020-01-20] MEDS: ACETAMINOPHEN 500 MG TAB PO PRN (21:24)
[2020-01-21] MEDS: NA CHLORIDE 0.9% 1,000 ML IV SCH (05:14)
[2020-01-21] MEDS: ACETAMINOPHEN 500 MG TAB PO PRN (05:37)
[2020-01-21 06:20] LABS: Absolute Lymphocytes (CBC) 1.4 K/uL (0.7-4.9); Basophils % 0.8 % (0-1.3); Hematocrit 38.8 % (39.6-49.0); Lymphocytes % 21.3 % (15.3-44.8); MPV 8.5 fL (7.6-11.3); RBC Red Blood Cell Count 3.99 M/uL (4.33-5.43)
[2020-01-21 06:56] LABS: BUN Blood Urea Nitrogen 15 mg/dL (7-18); Bicarbonate 26 mmol/L (21-32); Glucose Level 108 mg/dL (74-106); HDL Cholesterol 29 mg/dL (40-60); LDL Cholesterol, Calculated 58 (<130); Sodium Level 139 mmol/L (136-145)
[2020-01-21 06:57] LABS: Potassium 3.8 mmol/L (3.5-5.1)
[2020-01-21] MEDS ORDERED: POTASSIUM 25 MEQ EFFERV TAB PO ONE (07:21)
[2020-01-21] MEDS: carvediloL 12.5 MG TAB PO SCH (07:45)
[2020-01-21] MEDS: ASPIRIN EC 81 MG TAB PO SCH (08:49)
[2020-01-21] MEDS: CLOPIDOGREL 75 MG TABLET PO SCH (08:49)
[2020-01-21] MEDS: FUROSEMIDE 20 MG TABLET PO SCH (08:49)
[2020-01-21] MEDS: SACUBITRIL/VALSARTAN 49/51 MG TAB PO SCH (08:50)
--- NOTE | 2020-01-21 10:58 | P.DS ---
Admission Date: 01/20/20 Discharge Date: 01/21/20 Primary Care Provider: Elier Disposition: ROUTINE DISCHARGE Discharge Condition: GOOD Reason for Admission: Chest pain Consultations: Cardiology-Dr. Orosco Brief History of Present Illness: 64-year-old gentleman with a history of coronary artery disease status post stent, congestive heart failure, status post AICD, presented to the emergency department with a complaint of chest pain that has been present for 2 weeks. Chest pain described as pressure-like sensation. His initial troponin in the ED was negative. No acute changes on the EKG. Patient was admitted for ACS rule out. Hospital Course: Patient admitted to the medical floor. Troponin x3 was negative. Patient seen and evaluated by cardiology-Dr. Orosco. Cardiac catheterization performed, patient received a cardiac stent. Post cardiac catheterization monitoring was uneventful. Patient is currently asymptomatic. Vital stable and deemed clinically stable for discharge. He is discharged with aspirin and Plavix. Vital Signs/Physical Exam: Temp Pulse Resp BP Pulse Ox 97.2 F 66 18 108/64 94 01/21/20 08:00 01/21/20 08:49 01/21/20 08:00 01/21/20 08:49 01/21/20 08:00 General: Alert, In no apparent distress, Oriented x3 HEENT: Mucous membr. moist/pink Neck: Supple, JVD not distended Respiratory: Clear to auscultation bilaterally, Normal air movement Cardiovascular: No edema, Regular rate/rhythm, Normal S1 S2 Gastrointestinal: Normal bowel sounds, Soft and benign, No tenderness Integumentary: No rashes Neurological: Normal strength at 5/5 x4 extr Laboratory Data at Discharge: WBC 6.5 K/uL (4.3-10.9) 01/21/20 05:24 Hgb 13.2 g/dL (13.6-17.9) L 01/21/20 05:24 Hct 38.8 % (39.6-49.0) L 01/21/20 05:24 Plt Count 173 K/uL (152-406) 01/21/20 05:24 PT 11.4 SECONDS (9.5-12.5) 01/19/20 18:19 INR 0.97 01/19/20 18:19 Sodium 139 mmol/L (136-145) 01/21/20 05:24 Potassium 3.8 mmol/L (3.5-5.1) 01/21/20 05:24 BUN 15 mg/dL (7-18) 01/21/20 05:24 Creatinine 0.61 mg/dL (0.55-1.3) 01/21/20 05:24 Glucose 108 mg/dL (74-106) H 01/21/20 05:24 Magnesium 2.3 mg/dL (1.8-2.4) 01/19/20 18:19 Total Bilirubin 0.4 mg/dL (0.2-1.0) 01/19/20 18:19 AST 20 U/L (15-37) 01/19/20 18:19 ALT 37 U/L (12-78) 01/19/20 18:19 Alkaline Phosphatase 69 U/L (45-117) 01/19/20 18:19 Troponin I < 0.02 ng/mL (0.0-0.045) 01/20/20 11:47 Triglycerides 279 mg/dL (<150) H 01/21/20 05:24 Cholesterol 143 mg/dL (<200) 01/21/20 05:24 HDL Cholesterol 29 mg/dL (40-60) L 01/21/20 05:24 Cholesterol/HDL Ratio 4.93 01/21/20 05:24 Home Medications: Atorvastatin Calcium 1 tab PO DAILY 01/20/20 Carvedilol [Coreg] 1 tab PO BID 01/20/20 Clopidogrel Bisulfate [Plavix*] 1 tab PO DAILY 01/20/20 Furosemide 1 tab PO DAILY 01/20/20 Gabapentin 1 tab PO SEECOM PRN 01/20/20 Sacubitril/Valsartan [Entresto 49 mg-51 mg Tablet] 1 tab PO BID 01/20/20 Aspirin [Aspirin EC 81 MG] 81 mg PO DAILY #30 tablet. 01/21/20 New Medications: Aspirin [Aspirin EC 81 MG] 81 mg PO DAILY #30 tablet. Diet: AHA Activity: Ad ledy Followup: Jeramy Orosco MD [Primary Care Provider] - 1-2 Weeks Time spent managing pt's care (in minutes): 36
[2020-01-21 12:13] VITALS: BP 120/63; TEMP 96.8
--- NOTE | 2020-01-22 01:41 | OP ---
Date of Procedure: 01/20/2020 Surgeon: LOUIS NULL Procedures Performed: 1.Selective coronary angiogram. 2.Percutaneous coronary intervention of severe mid left anterior descending artery stenosis using a 2.75 x 16 mm Synergy drug-eluting stent post dilated proximally with high pressure inflation to 2.96 mm. Indication: Indication for the procedure is unstable angina. Access Site: Radial artery 6-Upper Sorbian closed with TR band. Total Sedation Time: 55 minutes. Complications: None. Bleeding: Less than 5 mL. Description Of Procedure: After risks, benefits, and alternatives were explained to the patient, he agreed to proceed and signed informed consent. We brought the patient to the cardiac catheterization laboratory, prepped and draped in usual sterile fashion, and we used fentanyl and Versed in incremen devi doses to achieve adequate moderate sedation throughout the procedure. We accessed right radial a rtery using pediatric micropuncture kit, placed a 6-Upper Sorbian sheath, and then we took the 5-Upper Sorbian Tige r catheter into the aortic root over J-wire, and engaged left main and then the right coronary artery , and took standard views and intervention was determined to be necessary. Then, we exchanged to a 6 -Upper Sorbian 3.5 EBU guide, engaged the left coronary artery. Intervention Details: We gave systemic heparin to assure ACT level above 250 throughout the procedur e and then we took a short run-through wire into the left main, into the LAD, crossing the mid LAD. Pre-dilated the lesion using a 2.5 x 50 mm balloon. Then, we took a 2.75 x 60 mm Synergy drug-elutin g stent across the stenosis, deployed it successfully, and postdilated the proximal part using high-p ressure distant balloon. That will bring the stent into 2.96 mm size. Then, we took the wires out a nd the guide, and we took the sheath out and closed the access with TR band without complications. Findings: 1.Left main is normal. 2.LAD has a mid 50% stenosis right at the takeoff of the diagonal 1 branch and then in the mid porti on further down has a 70% to 80% stenosis, status post PCI using 2.75 x 60 mm Synergy drug-eluting st ent post dilated to 2.96 mm proximally, diagonal 1 branch has a stent that is patent. 3.Left circumflex has a proximal stent that is patent. 4.RCA has a 30% midportion and 20% in the distal portion, otherwise no significant disease. Impression: 1.Severe mid left anterior descending artery stenosis, status post percutaneous coronary interventio n as above. 2.Another lesion of the mid left anterior descending artery that is moderate in severity, needs frac tional flow reserve to further evaluate the need for stent as a stent in that location would require bifurcation stenting technique. 3.Patent left circumflex and diagonal 1 prior stents. Recommendations: 1.Dual antiplatelet therapy and a high-intensity statin. 2.Staged FFR of the mid LAD stenosis as above. 3.Follow up in the office 4 weeks post discharge. SR/MODL Voice ID: [id number] Report ID: [id number]
--- NOTE | 2020-01-22 21:43 | CON ---
Date of Consultation: 01/22/2020 Reason For Consultation: Acute coronary syndrome. History Of Present Illness: Mr. Thomas is a 64-year-old white male. He is known to me from previous office visit and admission. He has a history of CAD. He is status post a stent of his OM and diagon al in the past. He has had a cardiomyopathy with a low ejection fraction. He is status post AICD. He has done well from a congestive heart failure standpoint. He has been taking Entresto, Coreg, Las ix, Lipitor, and Plavix at home as well as Neurontin. Came in with substernal chest pressure radiati ng to the neck and both arms with diaphoresis, shortness of breath with exertion. His troponin is ne gative. He was hypertensive at 199/97. His blood pressure now is 116/73. EKG showed nonspecific ch anges. Past Medical History: As stated above. Allergies: TO PENICILLIN. Medications: As stated earlier. Review of Systems: Negative. Social History: Negative. Family History: Negative. Physical Examination: General: He was anxious, otherwise in no acute distress. He was still having some pain that he desc ribed about 3/10. Vital signs: Stable. He was in sinus rhythm. HEENT: Negative. Neck: Supple with no bruit. Chest: Clear. Cardiac: Revealed a regular rhythm and rate. No murmurs, gallops, or rubs. Abdomen: Benign. Extremities: Revealed no clubbing, cyanosis, or edema. Diagnostic Data: As stated earlier. Impression And Plan: Mr. Thomas's symptoms are very consistent with unstable angina. He has a histor y of coronary artery disease, he has a history of congestive heart failure. He has status post defib rillator, status post angioplasty and stent of the diagonal a few years ago. I think the best course of therapy will be to have him do a heart catheterization to define his coronary anatomy. The patie nt agreed. He understands the risk and the benefits of the procedure. We will continue his present regimen otherwise. Hold Lovenox for now. He is already on Plavix. The procedure will be done by Dr Emma Zimmerman today. His blood pressure elevation initially I think was secondary to pain. It is much be tter controlled. We will just keep watching that. CARRI/MODL Voice ID: [id number] Report ID: [id number]
== END 2020-01-21 12:32 | disposition home or self-care (01) | DRG 247 ==
LOC: ER 19:40 → ERHOLD 01-20 00:35 → 2ND 01-20 02:08 → OBSVTOIN 01-20 19:03
PROVIDERS: ADMIT Internal Medicine; ATTEND Internal Medicine
PROC: 027034Z Dilation of Coronary Artery, One Artery with Drug-eluting Intraluminal Device, Percutaneous Approach (ICD-10-PCS; principal; 2020-01-20)
PROC: B2151ZZ Fluoroscopy of Left Heart using Low Osmolar Contrast (ICD-10-PCS; 2020-01-20)
PROC: B2111ZZ Fluoroscopy of Multiple Coronary Arteries using Low Osmolar Contrast (ICD-10-PCS; 2020-01-20)
DX: I25.110 Atherosclerotic heart disease of native coronary artery with unstable angina pectoris (principal); I50.22 Chronic systolic (congestive) heart failure; I11.0 Hypertensive heart disease with heart failure; F41.9 Anxiety disorder, unspecified; E78.5 Hyperlipidemia, unspecified; Z95.810 Presence of automatic (implantable) cardiac defibrillator; Z88.0 Allergy status to penicillin; Z79.02 Long term (current) use of antithrombotics/antiplatelets; Z79.899 Other long term (current) drug therapy; Z95.5 Presence of coronary angioplasty implant and graft; Z20.828 Contact with and (suspected) exposure to other viral communicable diseases
CPT/HCPCS: 36415; 71045; 80048; 80061; 80076; 83735; 83880; 84484; 85025; 85347; 85610; 92928; 93005; 93458; 96374; 99285; C1725; C1893; G0378; J1644; J1650; J2250; J2270; J3010; J7030; J7040; U0002

== ENCOUNTER → 2023-03-12 | Day surgery (SDC) | payer OTHER ==
--- NOTE | 2023-03-05 09:39 | RAD REPORT ---
EXAM DESCRIPTION: RAD - Chest Pa And Lat (2 Views) - 03/05/2023 9:32 am CLINICAL HISTORY: PRE OP Chest pain. COMPARISON: Chest Single View dated 01/19/2020; Chest Pa And Lat (2 Views) dated 12/12/2017; Abdomen 1 View (KUB) dated 09/11/2015 TECHNIQUE: PA and lateral views of the chest were obtained. FINDINGS: The lungs are hyperexpanded compatible with COPD. Multi lead pacer/ defibrillator device. The heart is upper limit of normal in size. No fracture or aggressive bony process. IMPRESSION: COPD without acute process identified. The USPSTF recommends annual screening for lung cancer with low-dose CT (LDCT) in adults aged 50 to 8 0 years who have a 20 pack-year smoking history and currently smoke or have quit within the past 15 y ears.
[2023-03-05 09:46] LABS: Absolute Lymphocytes (CBC) 1.9 K/uL (0.7-4.9); Hematocrit 45.1 % (39.6-49.0); MCV 94.4 fL (80-100); MPV 7.6 fL (7.6-11.3); Platelets 219 thou/uL (152-406); RBC Red Blood Cell Count 4.78 M/uL (4.33-5.43)
[2023-03-05 09:51] LABS: Protime INR 0.98
[2023-03-05 09:53] LABS: Potassium 3.7 mEq/L (3.5-5.1)
--- NOTE | 2023-03-05 16:36 | EKG ---
Test Date: 2023-03-05 Test Time: 09:20:07 Relief Manager: PACO MEASUREMENT RESULTS: Intervals: Rate: 79 OR: 156 QRSD: 104 QT: 396 QTc: 454 [place]: P: 2 OR: 156 QRS: -45 T: 19 INTERPRETIVE STATEMENTS: Normal sinus rhythm Left anterior fascicular block Moderate voltage criteria for LVH, may be normal variant Abnormal ECG Compared to ECG 01/19/2020 20:00:49 ST (T wave) deviation no longer present Electronically Signed On 03-05-23 16:36:14 CDT by Tramaine Zimmerman
[~2023-03-12] MED LIST: CLOPIDOGREL 75 MG TABLET ONE; FENTANYL CITR 100 MCG/2 ML ONE; HEPA 1000U/500MLS 1,000 UNIT/500 ML BAG IV ONE; HEPA 1000U/500MLS 2,000 UNIT/1,000 ML BAG IV ONE; HEPARIN 10,000 UNIT/10 ML VIAL IV ONE; HEPARIN 5000 UNIT/ML 1 ML VIAL ONE; LIDOCAINE 1% 20 ML MDV ONE; MIDAZOLAM HCL 2 MG/2 ML INJ ONE; NA CHLORIDE 0.9% 500 ML ONE; VERAPAMIL HCL 10 MG/4 ML VIAL IV ONE
[2023-03-12 19:40] VITALS: BP 134/85; O2SAT 95
--- NOTE | 2023-03-12 19:51 | OP ---
Date of Procedure: 03/12/2023 Surgeon: LOUIS NULL Procedures Performed: 1.Selective coronary angiogram. 2.Left heart catheterization. 3.PCI of severe mid LAD stenosis, I used 3.5 x 16 mm Synergy drug-eluting stent. Indication: Unstable angina. Access: Right radial artery 6-Citizen [place] was closed with TR band. Complications: None. Bleeding: Less than 20 mL. Anesthesia: Total sedation time was 1 hour. Description Of Procedure: After risks, benefits, alternatives were explained, patient agreed to the procedure and signed informal consent. Patient was brought into the cardiac catheterization laborato ry, prepped and draped in the usual sterile fashion. Then, I accessed the right radial artery using pediatric micropuncture kit and placed a 6-Citizen [place] Slender sheath and took 5-[place]izen [place] Arena 4 catheter i nto the aortic root, engaged the RCA, took standard views, catheter was pushed over the wire, measure d the LVEDP. Pullback did not record any gradient, then I exchanged for 6-Citizen [place] EBU 3.5 guide as th e Point Arena catheter could not engage the left main. I tried even the JL3.5 and JL3 and could not engage the left main due to tortuosity of the subclavian and I took EBU 3.5 guide and 6-[place]izen [place] into the aor tic root, engaged the left main, took standard views and then gave systemic heparin to assure ACT lev el above 250 throughout the procedure and patient already took aspirin and Plavix today. He is on th em chronically and then I took a Runthrough wire into the LAD, placed it distally and another Runthro ugh wire into the diagonal 1 branch and then lesion was re-dilated using a 3.5 balloon and then I ellis bharti 3.5 x 16 mm Synergy drug-eluting stent, excellent expansion and 0% residual stenosis. Diagonal b ranch was jailed slightly and now it has about 30% to 40%, but it is a plaque shift and YADIRA-3 flow i s present. I then removed the wires. Final angiogram was satisfactory and then I removed the guide and the sheath, placed TR band with good hemostasis. Findings: 1.Left main; large and normal. 2.LAD; large, proximal segment is normal. Mid segment is 80% hazy and might be even more than 80%, and status post successful PCI as above. Mid to distal LAD stent is patent, and diagonal [address] is patent. Diagonal ostially was jailed slightly with the plaque shift from the LAD, but YADIRA-3 flow was present and still more than 70% lumen is open. 3.Left circumflex; large vessel with patent OM stent. 4.RCA; large and dominant, proximal to mid 40%, distal 30%. 5.LVEDP is 13 mmHg. Conclusion: 1.Severe mid LAD stenosis, status post successful PCI as above. 2.Moderate coronary artery disease elsewhere and patent stents with diagonal 1, mid to distal LAD, a nd the OM1 branch. Plan: Aspirin, Plavix, and statin. SR/MODL Voice ID: [id number] Report ID: [id number]
== END ==
LOC: CCL 14:58
PROVIDERS: ATTEND Internal Medicine
DX: I25.110 Atherosclerotic heart disease of native coronary artery with unstable angina pectoris (principal); I10 Essential (primary) hypertension; E78.5 Hyperlipidemia, unspecified; Z95.5 Presence of coronary angioplasty implant and graft; Z95.810 Presence of automatic (implantable) cardiac defibrillator; Z79.02 Long term (current) use of antithrombotics/antiplatelets; Z79.899 Other long term (current) drug therapy; Z88.0 Allergy status to penicillin; Z82.49 Family history of ischemic heart disease and other diseases of the circulatory system
CPT/HCPCS: 36415; 71046; 76937; 80048; 85025; 85610; 85730; 92928; 93005; 93458; C1725; C1893; J1644; J2001; J2250; J3010; J7040; Q9967

== ENCOUNTER 2023-04-15 10:59 | Observation (INO) | payer OTHER ==
[2023-04-15 11:28] LABS: Absolute Lymphocytes (CBC) 1.8 K/uL (0.7-4.9); Hematocrit 46.1 % (39.6-49.0); Lymphocytes % 20.6 % (15.3-44.8); MCV 93.5 fL (80-100); Platelets 226 thou/uL (152-406); RBC Red Blood Cell Count 4.93 M/uL (4.33-5.43)
[2023-04-15] MEDS ORDERED: ASPIRIN 81 MG CHEWABLE TABLET ONE (11:39)
[2023-04-15] MEDS ORDERED: MORPHINE 4 MG/ML SYR ONE (11:40)
[2023-04-15 11:46] LABS: Magnesium 2.3 mg/dL (1.6-2.4); Troponin High Sensitivity 15.2 pg/mL (<58.9)
--- NOTE | 2023-04-15 12:25 | RAD REPORT ---
EXAM DESCRIPTION: RAD - Chest Single View - 04/15/2023 12:15 pm CLINICAL HISTORY: CHEST PAIN COMPARISON: Chest Pa And Lat (2 Views) dated 03/05/2023; Chest Single View dated 01/19/2020; Chest Pa And Lat (2 Views) dated 12/12/2017; Abdomen 1 View (KUB) dated 09/11/2015 FINDINGS: Lines: Pacemaker . Lungs: No evidence of edema or pneumonia. Pleural: No significant pleural effusions or pneumothorax. Cardiac: The heart size is within normal limits. Mediastinum: Within normal limits. Bones: No acute fractures. Other: None IMPRESSION: No acute cardiopulmonary disease.
--- NOTE | 2023-04-15 12:49 | ER ---
Nurse's Notes [facility] Name: Javier Thomas Age: 67 yrs Sex: Male : 1955 Arrival Date: 04/15/2023 Time: 10:59 Bed 4 Private MD: Diagnosis: Chest pain, unspecified Presentation: 04/15 11:09 Chief complaint: Patient states: he has been having chest pressure for approx one week, ap3 but it was worse this morning. patient reports the pain to be a 7/10 on the pain scale at this time. Coronavirus screen: At this time, the client does not indicate any symptoms associated with coronavirus-19. Ebola Screen: No symptoms or risks identified at this time. Initial Sepsis Screen: Does the patient meet any 2 criteria? No. Patient's initial sepsis screen is negative. Does the patient have a suspected source of infection? No. Patient's initial sepsis screen is negative. Risk Assessment: Do you want to hurt yourself or someone else? Patient reports no desire to harm self or others. Onset of symptoms was April 15, 2023. 11:09 Method Of Arrival: Ambulatory ap3 11:09 Acuity: JAC 2 ap3 Triage Assessment: 11:14 General: Appears in no apparent distress. Behavior is calm, cooperative, appropriate ap3 for age. Pain: Complains of pain in chest Pain currently is 7 out of 10 on a pain scale. Quality of pain is described as pressure. Neuro: Level of Consciousness is awake, alert, obeys commands, Oriented to person, place, time, situation, Appropriate for age. Cardiovascular: Reports chest pain, Patient's skin is warm and dry. Respiratory: Airway is patent Respiratory effort is even, unlabored, Respiratory pattern is regular, symmetrical. Historical: - Allergies: 11:11 PENICILLINS; ap3 - Home Meds: 11:11 atorvastatin Oral [Active]; carvedilol Oral [Active]; clopidogrel Oral [Active]; ap3 Entresto Oral [Active]; gabapentin Oral [Active]; aspirin 81 mg oral capsule [Active]; pantoprazole oral [Active]; - PMHx: 11:11 Arthritis; cardiomegaly; CHF; Hyperlipidemia; Hypertension; ap3 - Immunization history:: Client reports receiving the 2nd dose of the Covid vaccine, Flu vaccine is not up to date. - Social history:: Smoking status: Patient denies any tobacco usage or history of. Screenin:23 [facility] ED Fall Risk Assessment (Adult) History of falling in the last 3 months, mb9 including since admission No falls in past 3 months (0 pts) Confusion or Disorientation No (0 pts) Intoxicated or Sedated No (0 pts) Impaired Gait No (0 pts) Mobility Assist Device Used No (0 pt) Altered Elimination No (0 pt) Score/Fall Risk Level 0 - 2 = Low Risk Oriented to surroundings, Maintained a safe environment, Educated pt \T\ family on fall prevention, incl call for assistance when getting out of bed. Abuse screen: Denies threats or abuse. Nutritional screening: No deficits noted. Tuberculosis screening: No symptoms or risk factors identified. Assessment: 11:22 General: Appears uncomfortable, Behavior is calm, cooperative, appropriate for age. mb9 Pain: Complains of pain in chest Pain does not radiate. Pain currently is 8 out of 10 on a pain scale. Quality of pain is described as aching, throbbing, Pain began 2-3 days ago. Neuro: Marie Agitation-Sedation Scale (RASS): 0 - Alert and Calm Level of Consciousness is awake, alert, obeys commands, Oriented to person, place, time, situation, Appropriate for age. Cardiovascular: Heart tones S1 S2 present Patient's skin is warm and dry. Respiratory: Reports shortness of breath Airway is patent Respiratory effort is even, unlabored, Respiratory pattern is regular, symmetrical, Breath sounds are clear bilaterally. GI: Abdomen is round non-distended, Bowel sounds present X 4 quads. Abd is soft and non tender X 4 quads. : No signs and/or symptoms were reported regarding the genitourinary system. EENT: No signs and/or symptoms were reported regarding the EENT system. Derm: Skin is pink, warm \T\ dry. Musculoskeletal: Range of motion: intact in all extremities. 12:26 Reassessment: Patient and/or family updated on plan of care and expected duration. Pain mb9 level reassessed. Patient is alert, oriented x 3, equal unlabored respirations, skin warm/dry/pink. Patient states feeling better. Patient states symptoms have improved. Vital Signs: 11:09 BP 145 / 85; Pulse 67; Resp 18; Pulse Ox 96% on R/A; Weight 97.98 kg; Height 5 ft. 11 ap3 in. ; Pain 7/10; 11:43 BP 126 / 89; Pulse 68; Resp 15; Pulse Ox 95% on R/A; mb9 13:14 BP 123 / 92; Pulse 66; Resp 16; Pulse Ox 96% on R/A; mb9 11:09 Body Mass Index 30.13 (97.98 kg, 180.34 cm) ap3 11:09 Pain Scale: Adult ap3 ED Course: 11:00 Patient arrived in ED. rg4 11:04 Mariangel Milton, MATILDE is Primary Nurse. mb9 11:04 Sneha Krueger FNP-C is [facility]. kb 11:04 Franklin Vincent MD is Attending Physician. kb 11:04 Gatito Camacho MD is Attending Physician. kb 11:10 EKG done, by ED staff, reviewed by Sneha STAPLETON. mb9 11:11 Triage completed. ap3 11:14 Patient maintains SpO2 saturation greater than 95% on room air. ap3 11:14 Arm band placed on right wrist. ap3 11:15 Patient has correct armband on for positive identification. Placed in gown. Bed in low ap3 position. Call light in reach. Side rails up X2. Adult w/ patient. systems specialist on. Pulse ox on. NIBP on. 11:22 Inserted saline lock: 22 gauge in right forearm, using aseptic technique. mb9 11:23 No provider procedures requiring assistance completed. mb9 11:24 Basic Metabolic Panel Sent. mb9 11:24 CBC with Diff Sent. mb9 11:24 Magnesium Sent. mb9 11:24 NT PRO-BNP Sent. mb9 11:24 Troponin HS Sent. mb9 12:16 XRAY Chest (1 view) In Process Unspecified. EDMS 12:49 Justin Hyde is Hospitalizing Provider. kb 13:11 Patient admitted, IV remains in place. mb9 Administered Medications: 11:28 Drug: Ondansetron IVP 4 mg IVP once; over 2 minutes Route: IVP; Site: right forearm; mb9 12:10 Follow up: Response: No adverse reaction mb9 11:33 Drug: morphine IVP or IV 4 mg IVP once over 4 mins Route: IVP; Infused Over: 4 mins; mb9 Site: right forearm; 12:10 Follow up: Response: No adverse reaction mb9 11:33 Drug: Aspirin PO Chewable Tablet 324 mg PO once; 81 mg tablets x 4 Route: PO; mb9 12:10 Follow up: Response: No adverse reaction mb9 Medication: 11:44 VIS not applicable for this client. mb9 Outcome: 12:49 Decision to Hospitalize by Provider. kb 14:37 Admitted to Med/surg room 223, with chart, Report called to MATILDE Howard mb9 14:37 Condition: stable 14:37 Instructed on the need for admit, 14:46 Patient left the ED. mb9 Signatures: Dispatcher [employer] EDMS Sneha Krueger, VEHICLE COST ENGINEERTatum ROUSSEAU-Paloma Schulz4 Mckenna Moreno RN RN ap3 Mariangel Milton RN RN mb9
--- NOTE | 2023-04-15 12:49 | EDPHYS ---
Physician Documentation [facility] Name: Javier Thomas Age: 67 yrs Sex: Male : 1955 Arrival Date: 04/15/2023 Time: 10:59 Bed 4 Private MD: ED Physician Gatito Camacho HPI: 04/15 11:11 This 67 yrs old Male presents to ER via Unassigned with complaints of Chest Pressure. kb 11:11 Patient is a 67-year-old male with a history of hypertension, high cholesterol, stent kb placement [address] Zimmerman who presents for chest pressure that started 1 week ago and has gotten progressively worse. States he feels like someone is sitting on his chest.. Historical: - Allergies: 11:11 PENICILLINS; ap3 - Home Meds: 11:11 atorvastatin Oral [Active]; carvedilol Oral [Active]; clopidogrel Oral [Active]; ap3 Entresto Oral [Active]; gabapentin Oral [Active]; aspirin 81 mg oral capsule [Active]; pantoprazole oral [Active]; - PMHx: 11:11 Arthritis; cardiomegaly; CHF; Hyperlipidemia; Hypertension; ap3 - Immunization history:: Client reports receiving the 2nd dose of the Covid vaccine, Flu vaccine is not up to date. - Social history:: Smoking status: Patient denies any tobacco usage or history of. ROS: 11:11 Constitutional: Negative for fever, chills, and weight loss, kb 11:11 Cardiovascular: Positive for chest pain, Negative for edema, orthopnea, palpitations, paroxysmal nocturnal dyspnea, 11:11 All other systems are negative, Exam: 11:11 Constitutional: This is a well developed, well nourished patient who is awake, alert, kb and in no acute distress. Head/Face: Normocephalic, atraumatic. ENT: Moist Mucous membranes Cardiovascular: Regular rate Respiratory: Respirations even and unlabored. No increased work of breathing. Talking in full sentences Abdomen/GI: Soft, non-tender. No distention Skin: Warm, dry with normal turgor. Normal color. MS/ Extremity: Pulses equal, no cyanosis. Neurovascular intact. Full, normal range of motion. Neuro: Awake and alert, GCS 15, oriented to person, place, time, and situation. Moves all extremities. Normal gait. 11:11 ECG was reviewed by the Attending Physician. Vital Signs: 11:09 BP 145 / 85; Pulse 67; Resp 18; Pulse Ox 96% on R/A; Weight 97.98 kg; Height 5 ft. 11 ap3 in. ; Pain 7/10; 11:43 BP 126 / 89; Pulse 68; Resp 15; Pulse Ox 95% on R/A; mb9 13:14 BP 123 / 92; Pulse 66; Resp 16; Pulse Ox 96% on R/A; mb9 11:09 Body Mass Index 30.13 (97.98 kg, 180.34 cm) ap3 11:09 Pain Scale: Adult ap3 MDM: 11:04 Patient medically screened. kb 11:12 Differential diagnosis: abnormal EKG, acute myocardial infarction, coronary artery kb disease chest wall pain. The patient was given aspirin in the Emergency Department. Data reviewed: vital signs, nurses notes. 12:48 Consideration of Admission/Observation Patient was admitted/placed on observation. kb Escalation of care including admission/observation considered. Management of patient was discussed with the following: Hospitalist: Pt accepted for admission under Dr Martinez. Mold Unloader: Dr Zimmerman will consult. Care significantly affected by the following chronic conditions: Hypertension. Counseling: I had a detailed discussion with the patient and/or guardian regarding the historical points, exam findings, and any diagnostic results supporting the discharge/admit diagnosis, lab results, radiology results, the need for further work-up and treatment in the hospital. 04/15 11:10 Order name: Basic Metabolic Panel; Complete Time: 11:57 kb 04/15 11:10 Order name: CBC with Diff; Complete Time: 11:31 kb 04/15 11:10 Order name: Magnesium; Complete Time: 11:57 kb 04/15 11:10 Order name: NT PRO-BNP; Complete Time: 11:57 kb 04/15 11:10 Order name: Troponin HS; Complete Time: 11:57 kb 04/15 14:21 Order name: T4 Free EDHI 04/15 14:21 Order name: Thyroid Stimulating Hormone EDHI 04/15 14:21 Order name: Basic Metabolic Panel EDMS 04/15 14:21 Order name: Basic Metabolic Panel EDHI 04/15 14:21 Order name: Basic Metabolic Panel EDHI 04/15 14:21 Order name: Basic Metabolic Panel EDHI 04/15 14:21 Order name: Basic Metabolic Panel EDMS 04/15 14:21 Order name: Basic Metabolic Panel EDMS 04/15 14:21 Order name: CBC with Automated Diff EDMS 04/15 14:21 Order name: CBC with Automated Diff EDMS 04/15 14:21 Order name: CBC with Automated Diff EDMS 04/15 14:21 Order name: CBC with Automated Diff EDMS 04/15 14:21 Order name: CBC with Automated Diff EDMS 04/15 14:21 Order name: CBC with Automated Diff EDMS 04/15 14:21 Order name: Lipid Profile EDMS 04/15 14:21 Order name: Lipid Profile EDMS 04/15 14:21 Order name: Magnesium EDMS 04/15 14:21 Order name: Magnesium EDMS 04/15 14:21 Order name: Magnesium EDMS 04/15 14:21 Order name: Magnesium EDMS 04/15 14:21 Order name: Magnesium EDMS 04/15 14:21 Order name: Magnesium EDMS 04/15 14:21 Order name: Phosphorus EDMS 04/15 14:21 Order name: Phosphorus EDMS 04/15 14:21 Order name: Phosphorus EDMS 04/15 14:21 Order name: Phosphorus EDMS 04/15 14:21 Order name: Phosphorus EDMS 04/15 14:21 Order name: Phosphorus EDMS 04/15 14:21 Order name: Troponin High Sensitivity EDMS 04/15 14:21 Order name: Troponin High Sensitivity EDMS 04/15 14:21 Order name: Troponin High Sensitivity EDMS 04/15 11:10 Order name: XRAY Chest (1 view); Complete Time: 12:28 kb 04/15 11:10 Order name: EKG; Complete Time: 11:10 kb 04/15 14:21 Order name: CONS Physician Consult EDMS 04/15 11:10 Order name: Cardiac monitoring; Complete Time: 11:24 kb 04/15 11:10 Order name: EKG - Nurse/Tech; Complete Time: 11:24 kb 04/15 11:10 Order name: IV Saline Lock; Complete Time: 11:24 kb 04/15 11:10 Order name: Labs collected and sent; Complete Time: 11:24 kb 04/15 11:10 Order name: O2 Per Protocol; Complete Time: 11:24 kb 04/15 11:10 Order name: O2 Sat Monitoring; Complete Time: 11:24 kb EC: Rate is 68 beats/min. Rhythm is regular. QRS Braxton is Normal. TX interval is normal at kb 154 msec. QRS interval is normal at 108 msec. QT interval is normal at 438 msec. Administered Medications: 11:28 Drug: Ondansetron IVP 4 mg IVP once; over 2 minutes Route: IVP; Site: right forearm; mb9 12:10 Follow up: Response: No adverse reaction mb9 11:33 Drug: morphine IVP or IV 4 mg IVP once over 4 mins Route: IVP; Infused Over: 4 mins; mb9 Site: right forearm; 12:10 Follow up: Response: No adverse reaction mb9 11:33 Drug: Aspirin PO Chewable Tablet 324 mg PO once; 81 mg tablets x 4 Route: PO; mb9 12:10 Follow up: Response: No adverse reaction mb9 Disposition Summary: 04/15/23 12:49 Hospitalization Ordered Notes: Hospitalization Status: Observation kb Provider: Justin Hyde [facility] Condition: Stable kb Problem: new kb Symptoms: are unchanged kb Bed/Room Type: Standard Room Assignment: 223(04/15/23 14:15) bd Diagnosis - Chest pain, unspecified kb Forms: - Medication Reconciliation Form kb - SBAR form kb - Leadership Thank You Letter kb Addendum: 04/16/2023 15:34 I was immediately available for consultation during this patient's visit. I did not e c2 personally see the patient or guide the patient's care.. Signatures: Dispatcher [employer] Sneha Burton FNP-C FNP-Ckb Dirrim, Barbara bd Prokisch, Amanda RN RN ap3 Mariangel Milton RN RN mb9 Gatito Camacho MD MD ec2 Corrections: (The following items were deleted from the chart) 04/15 14:15 12:49 kb bd
--- NOTE | 2023-04-15 14:31 | P.HP ---
Certification for Inpatient Patient admitted to: Observation With expected LOS: >2 Midnights Practitioner: I am a practitioner with admitting privileges, knowledge of patient current condition, hospital course, and medical plan of care. Services: Services provided to patient in accordance with Admission requirements found in Title 42 Section 412.3 of the Code of Federal Regulations Patient History Date of Service: 04/15/23 Reason for admission: chest pain History of Present Illness: Javier Thomas is a 67 year old male with pmhx HTN, HFrEF (Defib/pacemaker), TN (stent x 5), HLD, arthritis, cardomegaly who presents to the ED with c/o chest pain for the past week that has progressively been getting worse. The pain is described as a pressure on his chest that does not radiate to the neck or arms. Javier is a currently a patient of Dr. Zimmerman. Initial vitals BP 145 / 85; Pulse 67; Resp 18; Pulse Ox 96% on R/A. Labs are overall unremarkable troponin 15.2, BNP 154, H/H16/46, potassium 4.0. Chest xray reports "No acute cardiopulmonary disease". EKG showing NSR with rate of 68. On examination, Javier is in no acute distress. He does feel pressure in his chest as if "someone is laying on his chest". He is taking Entresto and does feel a difference if he misses a dose. He has clear lung sounds, on 2 LNC sating 96%. Javier will be admitted to hospitalist service for further evaluation and treatment. Dr. Zimmerman has been consulted. Allergies Penicillins Allergy (Verified 03/05/23 09:04) Hives/Rash Home Medications: Atorvastatin Calcium 1 tab PO DAILY 01/20/20 Clopidogrel Bisulfate [Plavix*] 1 tab PO DAILY 01/20/20 Furosemide 1 tab PO DAILY 01/20/20 Gabapentin 1 tab PO SEECOM PRN 01/20/20 Sacubitril/Valsartan [Entresto 49 mg-51 mg Tablet] 1 tab PO BID 01/20/20 Aspirin [Aspirin EC 81 MG] 81 mg PO DAILY 30 Days #30 tablet. 01/21/20 carvediloL [Carvedilol] 12.5 mg PO BID 30 Days #60 tablet 01/21/20 - Past Medical/Surgical History Diabetic: No -: Hyperlipidemia -: Coronary artery disease with stent placement -: Hypertension -: CHF -: Pacemaker defibrillator -: Kidney Stones Removal -: Left Leg Surgery 1980 -: Pacemaker defibrillator -: Cardiac Stent placement Psychosocial/ Personal History: Patient lives at home with his family - Family History Father -: Cancer Notes: Lung Cancer Mother -: Heart disease Notes: Valve replacement Sister Notes: Enlarged Heart. Elder Sister- due to Stroke Brother Notes: CABG - Social History Alcohol use: No CD- Drugs: No Caffeine use: Yes Review of Systems General: Sweats Eyes: Unremarkable ENT: Unremarkable Cardiovascular: Chest Pain (pressure), Orthopnea, Paroxysmal Noc. Dyspnea Gastrointestinal: Unremarkable Genitourinary: Unremarkable Physical Examination - Physical Exam General: Alert, In no apparent distress, Oriented x3 HEENT: Atraumatic, Normocephalic, PERRLA Neck: Supple, 2+ carotid pulse no bruit, JVD not distended Respiratory: Clear to auscultation bilaterally, Normal air movement Cardiovascular: No edema, Normal pulses, Regular rate/rhythm, Normal S1 S2 Capillary refill: <2 Seconds Gastrointestinal: Normal bowel sounds, Soft and benign Musculoskeletal: No clubbing, No swelling Integumentary: No rashes, No breakdown, No significant lesion Neurological: Normal speech, Normal strength at 5/5 x4 extr, Normal tone - Studies Laboratory Data (last 24 hrs) 04/15/23 04/15/23 11:20 11:20 WBC 8.80 Hgb 16.1 Hct 46.1 Plt Count 226 Sodium 135 L Potassium 4.0 BUN 15 Creatinine 0.77 Glucose 128 H Magnesium 2.3 Assessment and Plan - Plan Assessment and plan Chest pain r/o TN hx TN s/p stents x5 HFrEF Trending troponin, 15.2 Asa given in ED Asa, statin, plavix Recent ECHO, will not order Consulted Dr. Zimmerman EF reported 40% on telemetry DVT ppx: SCD, pending procedure Full code LOS 2-3 day OBS Discharge Plan: Home Plan to discharge in: 48 Hours - Advance Directives Does patient have a Living Will: No Does patient have a Durable POA for Healthcare: No
[2023-04-15] MEDS: MORPHINE 2 MG/ML SYR IV PRN (17:04)
[2023-04-15 17:43] VITALS: BMI 30.1
[2023-04-15 17:48] LABS: Thyroid Stimulating Hormone 0.417 uIU/mL (0.358-3.740)
[2023-04-15] MEDS: carvediloL 12.5 MG TAB PO SCH (21:46)
[2023-04-15] MEDS: SACUBITRIL/VALSARTAN 49/51 MG TAB PO SCH (21:47)
[2023-04-16 03:47] LABS: Absolute Lymphocytes (CBC) 2.5 K/uL (0.7-4.9); Hematocrit 42.8 % (39.6-49.0); Lymphocytes % 27.4 % (15.3-44.8); MCV 94.5 fL (80-100); MPV 7.3 fL (7.6-11.3); Platelets 212 thou/uL (152-406); RBC Red Blood Cell Count 4.54 M/uL (4.33-5.43)
[2023-04-16 04:06] LABS: Magnesium 2.4 mg/dL (1.6-2.4); Phosphorus 3.3 mg/dL (2.5-4.9)
[2023-04-16] MEDS ORDERED: NA CHLORIDE 0.9% 500 ML ONE (07:47)
[2023-04-16] MEDS ORDERED: ASPIRIN 325 MG TAB ONE (08:56)
[2023-04-16] MEDS ORDERED: HEPA 1000U/500MLS 2,000 UNIT/1,000 ML BAG IV ONE (08:57)
[2023-04-16] MEDS ORDERED: HEPARIN 5000 UNIT/ML 1 ML VIAL ONE (08:58)
[2023-04-16] MEDS ORDERED: VERAPAMIL HCL 10 MG/4 ML VIAL IV ONE (08:58)
[2023-04-16] MEDS ORDERED: HEPARIN 10,000 UNIT/10 ML VIAL IV ONE (08:59)
[2023-04-16] MEDS ORDERED: ASPIRIN EC 81 MG TAB PO SCH (09:00)
[2023-04-16] MEDS ORDERED: CLOPIDOGREL 75 MG TABLET PO SCH (09:00)
[2023-04-16] MEDS: SACUBITRIL/VALSARTAN 49/51 MG TAB PO SCH (09:00)
[2023-04-16] MEDS: carvediloL 12.5 MG TAB PO SCH (09:00)
[2023-04-16] MEDS ORDERED: ATORVASTATIN 40 MG TAB PO SCH (09:00)
[2023-04-16] MEDS ORDERED: Phenylephrine HCl 10 MG/ML 1 ML VIAL ONE (09:45)
[2023-04-16 11:57] VITALS: O2SAT 94
--- NOTE | 2023-04-16 12:20 | OP ---
Date of Procedure: 04/16/2023 Surgeon: LOUIS NULL Procedures Performed: 1.Selective coronary angiogram. 2.Left heart catheterization. Indication: Unstable angina. Access: Right radial artery 6-[place]anish closed with TR band. Complications: None. Bleeding: Less than 20 mL. Anesthesia: Total sedation time was none. Description Of Procedure: After risks, benefits, alternatives were explained, patient agreed to proc edure, signed informed consent. Patient was brought into cardiac catheterization laboratory, prepped and draped in usual sterile fashion. Then I accessed right radial artery using pediatric micropunct ure kit, placed 6-Danish Slender sheath. I took 5-Danish [place] 4.0 catheter over a J-wire into the a ortic root, engaged left main, took standard views and then engaged the RCA and took standard views. Then, the catheter was pushed over the wire into the LV, measured the LVEDP. Pullback did not recor d any gradient, removed the catheter and the sheath and placed TR band with good hemostasis. Findings: 1.Left main; large and normal. 2.LAD; widely patent proximal to mid LAD stent and widely patent mid to distal LAD stent. No diseas e, otherwise, and diagonal 1 branch is large, has a stent proximally with ostial 50% stenosis, probab ly jailed from the LAD stent. 3.Left circumflex. It is a moderate sized vessel with OM1 branch has 30% stenosis. 4.RCA; there is a dominant circulation, mid 40% to 50% stenosis, unchanged from prior. The PDA and PLB have luminal irregularities. 5.LVEDP normal at 5 mmHg. Conclusion: 1.Widely patent LAD and diagonal 1 stent. 2.Moderate coronary artery disease, elsewhere. 3.Normal LVEDP. Recommendation: Medical management. SR/MODL Voice ID: [id number] Report ID: [id number]
[2023-04-16] MEDS: MORPHINE 2 MG/ML SYR IV PRN (12:58)
[2023-04-16 13:02] VITALS: BP 105/71; TEMP 97.1
--- NOTE | 2023-04-16 14:11 | P.DS ---
Admission Date: 04/15/23 Discharge Date: 04/16/23 Hospital Course: Discharge diagnosis Chest pain WI ruled out. hx WI s/p stents x5 Chronic diastolic heart failure Essential hypertension <leanne regalado - Last Filed: 04/16/23 15:16> Admission Date: 04/15/23 Discharge Date: 04/16/23 Reason for Admission: chest pain Brief History of Present Illness: Javier Thomas is a 67 year old male with pmhx HTN, HFrEF (Defib/pacemaker), WI (stent x 5), HLD, arthritis, cardomegaly who presents to the ED with c/o chest pain for the past week that has progressively been getting worse. The pain is described as a pressure on his chest that does not radiate to the neck or arms. Javier is a currently a patient of Dr. Zimmerman. Initial vitals BP 145 / 85; Pulse 67; Resp 18; Pulse Ox 96% on R/A. Labs are overall unremarkable troponin 15.2, BNP 154, H/H16/46, potassium 4.0. Chest xray reports "No acute cardiopulmonary disease". EKG showing NSR with rate of 68. On examination, Javier is in no acute distress. He does feel pressure in his chest as if "someone is laying on his chest". He is taking Entresto and does feel a difference if he misses a dose. He has clear lung sounds, on 2 LNC sating 96%. Javier will be admitted to hospitalist service for further evaluation and treatment. Dr. Zimmerman has been consulted. Hospital Course: Javire Thomas is a pleasant 67 year old male with a past medical history significant for HTN, HFrEF (Defib/pacemaker), WI (stent x 5), HLD, arthritis, cardomegaly who was admitted to the [facility] on 04/15/23 for Chest pain R/O WI. Javier presented to the ED presents with c/o chest pain for the past week that has progressively been getting worse. The pain is described as a pressure on his chest that does not radiate to the neck or arms. Javier is a currently a patient of Dr. Zimmerman. Dr. Zimmerman performed a left heart cath this morning, he was found to be stable and ready for discharge. We will continue medical management at this time. On 04/16/2023, Javier was seen on morning rounds and deemed medically stable for discharge. Javier was discharged with instructions to schedule follow-up appointments with Dr. Zimmerman and PCP. Javier was provided prescriptions for increased dose of Lipitor. The patient and family members were given the opportunity to ask questions and reported no further questions. Furthermore, all questions were answered to the best of my ability. A copy of this discharge summary will be sent to the above providers to facilitate continuity of care. Today, I personally spent 55 minutes with Javier, of which greater than 50% of the time was spent in patient education, counseling, and coordination of care as described above. Physical Exam General: Alert, In no apparent distress, Oriented x3 HEENT: Atraumatic, Normocephalic, PERRLA Neck: Supple, 2+ carotid pulse no bruit, JVD not distended Respiratory: Clear to auscultation bilaterally, Normal air movement Cardiovascular: No edema, Normal pulses, Regular rate/rhythm, Normal S1 S2 Capillary refill: <2 Seconds Gastrointestinal: Normal bowel sounds, Soft and benign Musculoskeletal: No clubbing, No swelling Integumentary: No rashes, No breakdown, No significant lesion Neurological: Normal speech, Normal strength at 5/5 x4 extr, Normal tone <María Elena Lundberg - Last Filed: 04/16/23 17:46> Disposition: ROUTINE DISCHARGE Discharge Condition: GOOD Vital Signs/Physical Exam: Temp Pulse Resp BP Pulse Ox 97.1 F 67 16 105/71 93 04/16/23 12:00 04/16/23 12:00 04/16/23 12:58 04/16/23 12:00 04/16/23 12:58 Laboratory Data at Discharge: WBC 9.30 thou/uL (4.3-10.9) 04/16/23 03:01 Hgb 14.4 g/dL (13.6-17.9) D 04/16/23 03:01 Hct 42.8 % (39.6-49.0) 04/16/23 03:01 Plt Count 212 thou/uL (152-406) 04/16/23 03:01 Sodium 136 mEq/L (136-145) 04/16/23 03:01 Potassium 4.0 mEq/L (3.5-5.1) 04/16/23 03:01 BUN 14 mg/dL (7-18) 04/16/23 03:01 Creatinine 0.77 mg/dL (0.70-1.30) 04/16/23 03:01 Glucose 114 mg/dL (74-106) H 04/16/23 03:01 Phosphorus 3.3 mg/dL (2.5-4.9) 04/16/23 03:01 Magnesium 2.4 mg/dL (1.6-2.4) 04/16/23 03:01 Triglycerides 195 mg/dL (<150) H 04/16/23 03:01 Cholesterol 182 mg/dL (<200) 04/16/23 03:01 HDL Cholesterol 35 mg/dL (40-60) L 04/16/23 03:01 Cholesterol/HDL Ratio 5.20 04/16/23 03:01 <leanne regalado - Last Filed: 04/16/23 15:16> Vital Signs/Physical Exam: Temp Pulse Resp BP Pulse Ox 97.1 F 67 16 105/71 93 04/16/23 12:00 04/16/23 12:00 04/16/23 12:58 04/16/23 12:00 04/16/23 12:58 Laboratory Data at Discharge: WBC 9.30 thou/uL (4.3-10.9) 04/16/23 03:01 Hgb 14.4 g/dL (13.6-17.9) D 04/16/23 03:01 Hct 42.8 % (39.6-49.0) 04/16/23 03:01 Plt Count 212 thou/uL (152-406) 04/16/23 03:01 Sodium 136 mEq/L (136-145) 04/16/23 03:01 Potassium 4.0 mEq/L (3.5-5.1) 04/16/23 03:01 BUN 14 mg/dL (7-18) 04/16/23 03:01 Creatinine 0.77 mg/dL (0.70-1.30) 04/16/23 03:01 Glucose 114 mg/dL (74-106) H 04/16/23 03:01 Phosphorus 3.3 mg/dL (2.5-4.9) 04/16/23 03:01 Magnesium 2.4 mg/dL (1.6-2.4) 04/16/23 03:01 Triglycerides 195 mg/dL (<150) H 04/16/23 03:01 Cholesterol 182 mg/dL (<200) 04/16/23 03:01 HDL Cholesterol 35 mg/dL (40-60) L 04/16/23 03:01 Cholesterol/HDL Ratio 5.20 04/16/23 03:01 <María Elena Lundberg - Last Filed: 04/16/23 17:46> <leanne regalado - Last Filed: 04/16/23 15:16> Diet: AHA Activity: Ad ledy <María Elena Lundberg - Last Filed: 04/16/23 17:46> Home Medications: Clopidogrel Bisulfate [Plavix*] 1 tab PO DAILY 01/20/20 Furosemide 1 tab PO DAILY 01/20/20 Gabapentin 1 tab PO SEECOM PRN 01/20/20 Sacubitril/Valsartan [Entresto 49 mg-51 mg Tablet] 1 tab PO BID 01/20/20 Aspirin [Aspirin EC 81 MG] 81 mg PO DAILY 30 Days #30 tablet. 01/21/20 carvediloL [Carvedilol] 12.5 mg PO BID 30 Days #60 tablet 01/21/20 Atorvastatin Calcium [Lipitor] 80 mg PO DAILY 30 Days #30 tab 04/16/23 Potassium Chloride [K-Dur] 20 meq PO DAILY 30 Days #30 tab 04/16/23 New Medications: Potassium Chloride [K-Dur] 20 meq PO DAILY 30 Days #30 tab Atorvastatin Calcium [Lipitor] 80 mg PO DAILY 30 Days #30 tab Physician Discharge Instructions: 1. Please call and schedule a follow-up appointment with your PCP in 3-5 days - Please follow-up with your PCP for medication refills/adjustments 2. Please call and schedule a follow-up appointment with Dr. Zimmerman in 3-5 days 3. heart healthy low sodium diet 4. No activity restrictions 5. Return to ED if symptoms return New medications Followup: Tramaine Zimmerman MD [ACTIVE - CAN ADMIT] - 2-3 Days Mariya Alves FNP BC [Primary Care Provider] -
--- NOTE | 2023-04-16 17:25 | EKG ---
Test Date: 2023-04-15 Test Time: 11:07:29 Plant Assigner: ERI MEASUREMENT RESULTS: Intervals: Rate: 68 [place]: 154 QRSD: 108 QT: 412 QTc: 438 [place]: P: 0 NJ: 154 QRS: -46 T: -13 INTERPRETIVE STATEMENTS: Normal sinus rhythm Left anterior fascicular block Abnormal ECG Compared to ECG 03/05/2023 09:20:07 Left ventricular hypertrophy no longer present Electronically Signed On 04-16-23 17:20:36 PRODUCTION FOREMAN by Tramaine Zimmerman
== END 2023-04-16 15:21 | disposition home or self-care (01) ==
LOC: ER 10:59 → 2ND 14:21
PROVIDERS: ADMIT Internal Medicine; ATTEND Internal Medicine
PROC: 4A023N7 Measurement of Cardiac Sampling and Pressure, Left Heart, Percutaneous Approach (ICD-10-PCS; principal; 2023-04-15)
PROC: B2111ZZ Fluoroscopy of Multiple Coronary Arteries using Low Osmolar Contrast (ICD-10-PCS; 2023-04-15)
DX: I25.110 Atherosclerotic heart disease of native coronary artery with unstable angina pectoris (principal); I11.0 Hypertensive heart disease with heart failure; I50.32 Chronic diastolic (congestive) heart failure; I25.2 Old myocardial infarction; E78.5 Hyperlipidemia, unspecified; M19.90 Unspecified osteoarthritis, unspecified site; Z95.5 Presence of coronary angioplasty implant and graft; Z95.810 Presence of automatic (implantable) cardiac defibrillator; Z79.02 Long term (current) use of antithrombotics/antiplatelets; Z79.82 Long term (current) use of aspirin; Z79.899 Other long term (current) drug therapy; Z88.0 Allergy status to penicillin; Z82.3 Family history of stroke; Z80.1 Family history of malignant neoplasm of trachea, bronchus and lung
CPT/HCPCS: 93005; 85025 ×2; 80048 ×2; 36415 ×2; 83735 ×2; 84100; 80061; 84443; 84484 ×3; 84439; 83880; 71045; 93458; 76937; 96375; 96374; 99285; C1893; Q9966; J1644; J2371; J2270 ×2; G0378 ×4; J7040

== ENCOUNTER 2024-05-24 11:54 | Emergency (ER) | payer OTHER ==
--- NOTE | 2024-05-24 13:24 | RAD REPORT ---
Exam:Knee Right 3 View HISTORY: Right knee pain FINDINGS: No fracture or dislocation seen Mild lateral subluxation of tibia on the femur. Mild to moderate narrowing of the medial compartment.
--- NOTE | 2024-05-24 13:50 | EDPHYS ---
Physician Documentation [facility] Name: Javier Thomas Age: 69 yrs Sex: Male : 1955 Arrival Date: 05/24/2024 Time: 11:54 Bed 9 Private MD: ED Physician Jp Craig HPI: 05/24 13:44 This 69 yrs old Male presents to ER via Ambulatory with complaints of Knee lamine Pain - Right. 13:44 The patient presents with decreased range of motion, an injury, pain. The complaints lamine affect the medial aspect of right knee and right knee. Context: resulted from twisting of the extremity. Onset: The symptoms/episode began/occurred today. Modifying factors: The symptoms are alleviated by elevating leg, remaining still, the symptoms are aggravated by movement, weight bearing. Associated signs and symptoms: The patient has no apparent associated signs or symptoms. Treatment prior to arrival includes: no previous treatment. Severity of symptoms: At their worst the symptoms were moderate, in the emergency department the symptoms are unchanged. The patient has not experienced similar symptoms in the past. Historical: - Allergies: 12:31 PENICILLINS; hb - PMHx: 12:31 Arthritis; cardiomegaly; CHF; Hyperlipidemia; Hypertension; hb - PSHx: 12:32 Pacemaker/Defib; hb - Immunization history:: Adult Immunizations up to date. - Infectious Disease History:: Denies. - Social history:: Smoking status: Patient denies any tobacco usage or history of. ROS: 13:44 Constitutional: Negative for fever, chills, and weight loss, Eyes: Negative for injury, lamine pain, redness, and discharge, ENT: Negative for injury, pain, and discharge, Neck: Negative for injury, pain, and swelling, Cardiovascular: Negative for chest pain, palpitations, and edema, Respiratory: Negative for shortness of breath, cough, wheezing, and pleuritic chest pain, Abdomen/GI: Negative for abdominal pain, nausea, vomiting, diarrhea, and constipation, Back: Negative for injury and pain, : Negative for injury, bleeding, discharge, and swelling, Skin: Negative for injury, rash, and discoloration, Neuro: Negative for headache, weakness, numbness, tingling, and seizure, Psych: Negative for depression, anxiety, suicide ideation, homicidal ideation, and hallucinations, Allergy/Immunology: Negative for hives, rash, and allergies, Endocrine: Negative for neck swelling, polydipsia, polyuria, polyphagia, and marked weight changes, Hematologic/Lymphatic: Negative for swollen nodes, abnormal bleeding, and unusual bruising, 13:44 MS/extremity: Positive for injury or acute deformity, decreased range of motion, pain, tenderness, of the medial aspect of right knee, Exam: 13:44 Constitutional: This is a well developed, well nourished patient who is awake, alert, lamine and in no acute distress. Head/Face: Normocephalic, atraumatic. Eyes: Pupils equal round and reactive to light, extra-ocular motions intact. Lids and lashes normal. Conjunctiva and sclera are non-icteric and not injected. Cornea within normal limits. Periorbital areas with no swelling, redness, or edema. ENT: Nares patent. No nasal discharge, no septal abnormalities noted. Tympanic membranes are normal and external auditory canals are clear. Oropharynx with no redness, swelling, or masses, exudates, or evidence of obstruction, uvula midline. Mucous membranes moist. Neck: Trachea midline, no thyromegaly or masses palpated, and no cervical lymphadenopathy. Supple, full range of motion without nuchal rigidity, or vertebral point tenderness. No Meningismus. Chest/axilla: Normal chest wall appearance and motion. Nontender with no deformity. No lesions are appreciated. Cardiovascular: Regular rate and rhythm with a normal S1 and S2. No gallops, murmurs, or rubs. Normal PMI, no JVD. No pulse deficits. Respiratory: Lungs have equal breath sounds bilaterally, clear to auscultation and percussion. No rales, rhonchi or wheezes noted. No increased work of breathing, no retractions or nasal flaring. Abdomen/GI: Soft, non-tender, with normal bowel sounds. No distension or tympany. No guarding or rebound. No evidence of tenderness throughout. Back: No spinal tenderness. No costovertebral tenderness. Full range of motion. Male : Normal genitalia with no discharge or lesions. Skin: Warm, dry with normal turgor. Normal color with no rashes, no lesions, and no evidence of cellulitis. Neuro: Awake and alert, GCS 15, oriented to person, place, time, and situation. Cranial nerves II-XII grossly intact. Motor strength 5/5 in all extremities. Sensory grossly intact. Cerebellar exam normal. Normal gait. Psych: Awake, alert, with orientation to person, place and time. Behavior, mood, and affect are within normal limits. 13:44 Musculoskeletal/extremity: ROM: limited active range of motion due to pain, limited passive range of motion due to pain, in the medial aspect of right knee and right knee, Circulation is intact in all extremities. Sensation intact. Compartment Syndrome exam of affected extremity: is normal. Weight bearing: able to fully bear weight, with pain, DVT Exam: negative Homans' sign noted on exam, no appreciated bluish discoloration, no erythema, no increased warmth, pain, swelling, tenderness, Vital Signs: 12:28 BP 124 / 91; Pulse 68; Resp 16; Temp 98; Pulse Ox 100% ; Weight 95.25 kg; Height 5 ft. hb 11 in. ; Pain 10/10; 14:20 BP 127 / 81; Pulse 74; Resp 17; Pulse Ox 99% on R/A; rs5 12:28 Body Mass Index 29.29 (95.25 kg, 180.34 cm) hb 12:28 Pain Scale: Adult hb MDM: 12:00 Medical Screening Exam initiated lamine 13:46 Differential diagnosis: closed fracture, contusion, tendonitis. Data reviewed: vital lamine signs, nurses notes, radiologic studies, plain films. Consideration of Admission/Observation Escalation of care including admission/observation considered. I considered the following discharge prescriptions or medication management in the emergency department Medications were administered in the Emergency Department. See MAR. Independent interpretation of the following test(s) in the Emergency Department X-Ray: My interpretation is right knee. Test considered but Not performed: Labs: no cbc, no comp met. Historians other than the Patient: pt well informed. Care significantly affected by the following chronic conditions: Hypertension, Congestive Heart Failure, oa, cardiomegaly. Counseling: I had a detailed discussion with the patient and/or guardian regarding the historical points, exam findings, and any diagnostic results supporting the discharge/admit diagnosis, lab results, radiology results, the need for outpatient follow up, for definitive care, a family practitioner, a orthopedic surgeon. 05/24 12:00 Order name: Knee Right 3 View XRAY; Complete Time: 13:33 [facility] 05/24 12:00 Order name: Ice pack; Complete Time: 16:56 [facility] 05/24 13:34 Order name: Knee Immobilizer; Complete Time: 16:56 [facility] 05/24 13:34 Order name: Crutches; Complete Time: 16:56 [facility] Administered Medications: 13:40 Drug: Ibuprofen PO 600 mg PO once Route: PO; rs5 14:20 Follow up: Response: No adverse reaction; Pain is decreased rs5 13:44 Drug: Ulysses PO 10 mg-325 mg 1 tabs PO once Route: PO; rs5 14:20 Follow up: Response: No adverse reaction; Pain is decreased rs5 Disposition Summary: 05/24/24 13:49 Discharge Ordered Notes: Location: Home [facility] Problem: new lamine Symptoms: have improved lamine Condition: Stable lamine Diagnosis - Pain in right knee lamine - Sprain of other specified parts of right knee lamine Followup: lamine - With: Private Physician - When: 2 - 3 days - Reason: Recheck today's complaints, Continuance of care, Re-evaluation by your physician Followup: lamine - With: Mihir Weinberg MD - When: 2 - 3 days - Reason: Recheck today's complaints, Re-evaluation by your physician Discharge Instructions: - Discharge Summary Sheet lamine - Joint Pain lamine - Arthritis [facility] - How to Use a Knee Brace [facility] - Musculoskeletal Pain lamine - Acute Knee Pain, Adult lamine - Arthritis, [id number] [facility] Forms: - Medication Reconciliation Form [facility] - Antibiotic Education lamine - Prescription Opioid Use lamine - Patient Portal Instructions [facility] - Leadership Thank You Letter [facility] Prescriptions: - acetaminophen-codeine 300-30 mg Oral tablet - take 2 tablet ORAL route 2 times per day prn pain; 20 tablet; Refills: 0, [facility] Product Selection Permitted - diclofenac sodium 25 mg Oral tablet, delayed release (enteric coated) - take 1 tablet ORAL route every 8 hours; 21 tablet; Refills: 0, Product [facility] Selection Permitted - Medrol (Hari) 4 mg Oral Tablets, Dose Pack - take 1 tablet ORAL route as directed - follow package instructions; 1 packet; [facility] Refills: 0, Product Selection Permitted Signatures: Dispatcher [employer] Jp López MD MD cha Baxter, Heather, RN RN hb Arthur Randolph RN RN rs5 Corrections: (The following items were deleted from the chart) 12:32 12:31 PSHx: PACEMAKER/DEFIB (Hypertension); hb hb
--- NOTE | 2024-05-24 13:50 | ER ---
Nurse's Notes [facility] Name: Javier Thomas Age: 69 yrs Sex: Male : 1955 Arrival Date: 05/24/2024 Time: 11:54 Bed 9 Private MD: Diagnosis: Pain in right knee;Sprain of other specified parts of right knee Presentation: 05/24 12:28 Chief complaint: RIGHT KNEE PAIN SINCE LAST NIGHT. WAS STANDING THEN TWISTED AT THE WAIST AND FELT A POP IN KNEE. Coronavirus screen: At this time, the client does not indicate any symptoms associated with coronavirus-19. Ebola Screen: No symptoms or risks identified at this time. Initial Sepsis Screen: Does the patient meet any 2 criteria? No. Patient's initial sepsis screen is negative. Does the patient have a suspected source of infection? No. Patient's initial sepsis screen is negative. Risk Assessment: Do you want to hurt yourself or someone else? Patient reports no desire to harm self or others. Onset of symptoms was May 23, 2024. 12:28 Method Of Arrival: Ambulatory 12:28 Acuity: JAC 4 hb Triage Assessment: 12:33 General: Appears in no apparent distress. uncomfortable, Behavior is calm, cooperative. rs5 Historical: - Allergies: 12:31 PENICILLINS; hb - PMHx: 12:31 Arthritis; cardiomegaly; CHF; Hyperlipidemia; Hypertension; hb - PSHx: 12:32 Pacemaker/Defib; hb - Immunization history:: Adult Immunizations up to date. - Infectious Disease History:: Denies. - Social history:: Smoking status: Patient denies any tobacco usage or history of. Screenin:35 [facility] ED Fall Risk Assessment (Adult) History of falling in the last 3 months, rs5 including since admission No falls in past 3 months (0 pts) Confusion or Disorientation No (0 pts) Intoxicated or Sedated No (0 pts) Impaired Gait Yes (1 pt) Mobility Assist Device Used Yes (1 pt) Altered Elimination No (0 pt) Score/Fall Risk Level 0 - 2 = Low Risk Oriented to surroundings, Maintained a safe environment. Abuse screen: Denies threats or abuse. Nutritional screening: No deficits noted. Tuberculosis screening: No symptoms or risk factors identified. Assessment: 12:35 General: Appears in no apparent distress. uncomfortable, Behavior is cooperative. Pain: rs5 Complains of pain in right knee Pain currently is 8 out of 10 on a pain scale. Quality of pain is described as aching, Is continuous. Neuro: Level of Consciousness is awake, alert, obeys commands, Oriented to person, place, time, situation. Cardiovascular: Patient's skin is warm and dry. Respiratory: Airway is patent Respiratory effort is even, unlabored, Respiratory pattern is regular, symmetrical. GI: Abdomen is round non-distended, Abd is soft and non tender X 4 quads. : No signs and/or symptoms were reported regarding the genitourinary system. EENT: No signs and/or symptoms were reported regarding the EENT system. Derm: Skin is intact, Skin is pink, warm \T\ dry. Musculoskeletal: Range of motion: limited in right knee. 13:44 Reassessment: Patient and/or family updated on plan of care and expected duration. Pain rs5 level reassessed. Patient is alert, oriented x 3, equal unlabored respirations, skin warm/dry/pink. 14:20 Reassessment: Patient and/or family updated on plan of care and expected duration. Pain rs5 level reassessed. Patient is alert, oriented x 3, equal unlabored respirations, skin warm/dry/pink. Vital Signs: 12:28 BP 124 / 91; Pulse 68; Resp 16; Temp 98; Pulse Ox 100% ; Weight 95.25 kg; Height 5 ft. hb 11 in. ; Pain 10/10; 14:20 BP 127 / 81; Pulse 74; Resp 17; Pulse Ox 99% on R/A; rs5 12:28 Body Mass Index 29.29 (95.25 kg, 180.34 cm) hb 12:28 Pain Scale: Adult hb ED Course: 11:56 Patient arrived in ED. im 12:00 Jp Craig MD is Attending Physician. lamine 12:31 Triage completed. hb 12:35 Eden Bueno, MATILDE is Primary Nurse. me1 12:35 Patient has correct armband on for positive identification. Placed in gown. Bed in low rs5 position. Call light in reach. Side rails up X2. 12:35 Arm band placed on right wrist. rs5 12:35 No provider procedures requiring assistance completed. rs5 12:45 Knee Right 3 View XRAY In Process Unspecified. EDMS 13:39 Arthur Randolph, RN is Primary Nurse. rs5 13:48 Mihir Weinberg MD is Referral Physician. [facility] 14:20 Provided Education on: discharge instructions . rs5 14:22 Patient did not have IV access during this emergency room visit. rs5 Administered Medications: 13:40 Drug: Ibuprofen PO 600 mg PO once Route: PO; rs5 14:20 Follow up: Response: No adverse reaction; Pain is decreased rs5 13:44 Drug: [place] PO 10 mg-325 mg 1 tabs PO once Route: PO; rs5 14:20 Follow up: Response: No adverse reaction; Pain is decreased rs5 Medication: 12:35 VIS not applicable for this client. rs5 Outcome: 13:49 Discharge ordered by . [facility] 14:22 Discharged to home with crutches, with family, rs5 14:22 Condition: stable rs5 14:22 Discharge instructions given to patient, family, Instructed on discharge instructions, follow up and referral plans. medication usage, Demonstrated understanding of instructions, follow-up care, medications, Prescriptions given X 2, 14:25 Patient left the ED. rs5 Signatures: Dispatcher [employer] EDVA Jp Craig MD MD cha Baxter, Heather, RN RN Arthur Randolph, RN RN rs5 Kindra Naidu Michelle, RN RN me1 Corrections: (The following items were deleted from the chart) 12:32 12:31 PSHx: PACEMAKER/DEFIB (Hypertension); hb hb 16:54 14:33 Reassessment: Patient and/or family updated on plan of care and expected rs5 duration. Pain level reassessed. Patient is alert, oriented x 3, equal unlabored respirations, skin warm/dry/pink. rs5
[2024-05-24] MEDS ORDERED: IBUPROFEN 400 MG TAB ONE (14:02)
[2024-05-24] MEDS ORDERED: HYDROCODONE/APAP 10/325 TAB ONE (14:02)
[2024-05-24] MEDS ORDERED: IBUPROFEN 200 MG TAB PO ONE (14:12)
[2024-05-24 14:59] VITALS: BP 124/91; TEMP 98; O2SAT 100
== END 2024-05-24 14:25 | disposition home or self-care (01) ==
LOC: ER 11:54
DX: S83.8X1A Sprain of other specified parts of right knee, initial encounter (principal); Z95.810 Presence of automatic (implantable) cardiac defibrillator
CPT/HCPCS: 99283

== ENCOUNTER 2024-07-27 12:00 | Day surgery (SDC) | payer OTHER ==
[2024-07-23 10:42] LABS: Absolute Basophils 0.1 K/uL (0-0.5); Absolute Eosinophils 0.3 K/uL (0-0.5); Absolute Lymphocytes (CBC) 2.3 K/uL (0.7-4.9); Basophils % 0.7 % (0-1.3); Eosinophils % 2.9 % (0-4.4); Hematocrit 44.6 % (39.6-49.0); Hemoglobin 15.5 g/dL (13.6-17.9); Lymphocytes % 26.5 % (15.3-44.8); MCH 32.5 pg (27.0-35.0); MCHC 34.8 g/dL (32.0-36.0); MCV 93.4 fL (80-100); MPV 7.9 fL (7.6-11.3); Monocytes % 11.8 % (3.3-12.3); Neutrophils % 58.1 % (41.7-73.7); Nucleated Red Blood Cells % 0.1 % (0-0); Platelets 207 thou/uL (152-406); RBC Red Blood Cell Count 4.78 M/uL (4.33-5.43); Red Cell Distribution Width 13.8 % (12.1-15.2)
[2024-07-23 10:55] LABS: PT Prothrombin Time 10.9 SECONDS (9.4-12.5); PTT, Activated Partial Thromb 34.3 SECONDS (24.3-36.9); Protime INR 1.04
--- NOTE | 2024-07-23 12:00 | RAD REPORT ---
EXAMINATION: TWO VIEW CHEST XR CLINICAL INDICATION: PRE OP TECHNIQUE: 2 views of the chest was performed. COMPARISON: 04/15/2023 FINDINGS: Lungs are hyperexpanded but clear. The heart is mildly enlarged with multilead pacer/stimulator devic e. No displaced fractures evident. Small hiatal hernia. IMPRESSION: No acute or significant abnormalities.
--- NOTE | 2024-07-26 12:11 | EKG ---
Test Date: 2024-07-23 Test Time: 11:19:02 Cloth Grader Supervisor: RITU MEASUREMENT RESULTS: Intervals: Rate: 70 DC: 150 QRSD: 114 QT: 378 QTc: 408 [place]: P: 7 DC: 150 QRS: -50 T: 53 INTERPRETIVE STATEMENTS: Normal sinus rhythm with sinus arrhythmia Left anterior fascicular block Minimal voltage criteria for LVH, may be normal variant Abnormal ECG Compared to ECG 04/15/2023 11:07:29 Left ventricular hypertrophy now present Electronically Signed On 07-26-24 12:10:19 WINDOW CLEANER by Gerardo Brooks
[2024-07-27] MEDS ORDERED: NA CHLORIDE 0.9% 500 ML ONE (12:43)
[2024-07-27] MEDS ORDERED: LIDOCAINE 1% 20 ML MDV ONE (13:47)
[2024-07-27] MEDS ORDERED: HEPARIN 10,000 UNIT/10 ML VIAL IV ONE (13:47)
[2024-07-27] MEDS ORDERED: VERAPAMIL HCL 10 MG/4 ML VIAL IV ONE (13:47)
[2024-07-27] MEDS ORDERED: HEPA 1000U/500MLS 2,000 UNIT/1,000 ML BAG IV ONE (13:47)
[2024-07-27] MEDS ORDERED: ATROPINE SULF 1 MG/10 ML SYR IV ONE (13:48)
[2024-07-27] MEDS ORDERED: MIDAZOLAM HCL 2 MG/2 ML INJ ONE (13:48)
[2024-07-27] MEDS ORDERED: CLOPIDOGREL 75 MG TABLET ONE (13:48)
[2024-07-27] MEDS ORDERED: ASPIRIN 325 MG TAB ONE (13:49)
[2024-07-27] MEDS ORDERED: FENTANYL CITR 100 MCG/2 ML ONE (13:49)
[2024-07-27] MEDS ORDERED: TICAGRELOR 90 MG TABLET PO ONE (13:49)
[2024-07-27] MEDS ORDERED: HEPARIN 5000 UNIT/ML 1 ML VIAL ONE (13:49)
[2024-07-27 17:43] VITALS: O2SAT 95
[2024-07-27 17:57] VITALS: BP 112/72
--- NOTE | 2024-07-27 21:16 | OP ---
Date of Procedure: 07/27/2024 Surgeon: LOUIS NULL Procedures Performed: 1. Selective coronary angiogram. 2. Left heart catheterization. 3. Right heart catheterization. Indications: 1. Unstable angina. 2. Shortness of breath. Access: 1. Right radial artery 6-[place]ian, closed with TR band. 2. Right IJ 7-Estonian, closed with manual pressure. Complications: None. Bleeding: Less than 50 mL. Anesthesia: Total sedation time as 1 hour, used fentanyl and Versed. Description Of Procedure: After risks, benefits, and alternatives were explained, patient agreed to procedure and signed informed consent. The patient was brought into cardiac catheterization [facility], prepped and draped in sterile fashion. Then, I accessed right radial artery using pediatric micr opuncture kit and ultrasound guidance, and placed 6-[place] Sl[place] sheath and I accessed right IJ usi ng micropuncture kit ultrasound guidance, and placed a 7-[place]ian [place] sheath and then took a ballo on tipped 7-[place] catheter through the IJ access into the right atrium, right ventricle, pulmon isabella artery, and wedge, obtained waveform and pressure. Then, measured cardiac output using the therm odilution method and then removed the [place] and IJ sheath was removed. Manual pressure was used for c losure. Good hemostasis. Then, we took the 5-[place] 4 catheter into aortic root over a J-wire , engaged left main, took standard views, and then the RCA, took standard views. Across the aortic v alve, measured the LVEDP and pullback did not record any significant gradient. Then, removed the cat heter and the sheath, placed TR band with good hemostasis. Findings: 1. Coronary angiogram. a. Left main is normal. b. LAD: Widely patent proximal to mid LAD stent. With diagonal 1 being large, has widely patent stent. There is ostial 40% stenosis of the diagonal 1. Rest of the LAD is normal. c. Left circumflex: Very large vessel, proximal 30%, widely patent OM stent and the circ has dis devi 50% stenosis. d. RCA: It is a dominant circulation, diffuse 40% to 50% mid RCA stenosis. Rest of it with nadege nal irregularities and then the PDA is totally occluded ostially. The PLB is patent. 2. Right heart catheterization numbers: RA pressure was 6. RV pressure 27/2, mean of 6. PA pressur e 22/8, mean of 16. Pulmonary wedge pressure was 7. LVEDP was 11 mmHg. Cardiac output was 6.3 L/mi nute. Conclusion: 1. Widely patent LAD and OM stent, otherwise moderate coronary artery disease and [employer] of the PDA that is not amenable to intervention. 2. Normal filling pressure. Recommendation: Medical management. SR/MODL Voice ID: [id number] Report ID: [id number]
== END 2024-07-27 18:05 | disposition home or self-care (01) ==
LOC: CCL 12:00
PROVIDERS: ATTEND Internal Medicine
DX: I25.110 Atherosclerotic heart disease of native coronary artery with unstable angina pectoris (principal); I25.82 Chronic total occlusion of coronary artery; I11.0 Hypertensive heart disease with heart failure; I50.32 Chronic diastolic (congestive) heart failure; E78.5 Hyperlipidemia, unspecified; Z95.5 Presence of coronary angioplasty implant and graft; Z95.810 Presence of automatic (implantable) cardiac defibrillator; Z79.02 Long term (current) use of antithrombotics/antiplatelets; Z79.899 Other long term (current) drug therapy; Z88.0 Allergy status to penicillin; Z82.49 Family history of ischemic heart disease and other diseases of the circulatory system
CPT/HCPCS: 36415; 71046; 76937; 80048; 85025; 85610; 85730; 93005; 93460; 99152; C1893; J0461; J1644; J2003; J2250; J3010; J7040; Q9966